=== PATIENT | female | born 1945 | race African-American/Black ===

== ENCOUNTER 2017-11-13 09:34 | Inpatient (IN) | payer OTHER, BC ==
--- NOTE | 2017-11-13 09:38 | PDOC ---
Attending Attestation - HPI HPI: 11/13/17 10:05 The patient is a 72 year old female with a significant PMH of ESRD(dialysis MWF) , hypertension, hyperlipidemia, anemia, and diabetes who presents to the emergency department via EMS with a near syncope episode prior to arrival to ED. The patient reports that she was at her dialysis treatment earlier this morning . she states that she had finished 2 of her 3 hours of her treatment when she began to experience some lightheadedness and vision changes. She denies eating or taking her blood pressure medication today. The patient denies any other symptoms. She denies any chest pain or shortness of breath. She denies any headache, numbness, weakness or tingling sensation. She denies any fever, chills, cough, nausea, vomit, diarrhea, constipation or urinary symptoms. The patient denies any other complaints. PCP: Dr. Song - Physicial Exam PE: 11/13/17 10:05 GENERAL: Awake, alert, and fully oriented, in no acute distress HEAD: No signs of trauma EYES: PERRLA, EOMI, sclera anicteric, conjunctiva clear ENT: Auricles normal inspection, hearing grossly normal, nares patent, oropharynx clear without exudates. Moist mucosa NECK: Normal ROM, supple, no lymphadenopathy, JVD, or masses LUNGS: Breath sounds equal, clear to auscultation bilaterally. No wheezes, and no crackles HEART: (+)tachycardic. Regular rate, normal S1 and S2, no murmurs, rubs or gallops ABDOMEN: Soft, nontender, normoactive bowel sounds. No guarding, no rebound. No masses EXTREMITIES: (+)left upper extremity fistula with bruit. Normal range of motion , no edema in legs. No clubbing or cyanosis. No cords, erythema, or tenderness NEUROLOGICAL: Cranial nerves II through XII grossly intact. Normal speech, normal gait SKIN: Warm, Dry, normal turgor, no rashes or lesions noted. Documentation prepared by Lea Machuca, acting as biomedical engineering technician for Rosi Cooper DO, MD. <Lea Machuca - Last Filed: 11/13/17 10:05> - Resident Resident Name: Samuel Yeh - ED Attending Attestation I have performed the following: I have examined & evaluated the patient, The case was reviewed & discussed with the resident, I agree w/resident's findings & plan, Exceptions are as noted - Critical Care Time Total Critical Care Time: 35 Critical Care Statement: The care of this patient involved high complexity decision making to prevent further life threatening deterioration of the patient 's condition and/or to evaluate & treat vital organ system(s) failure or risk of failure. - Medical Decision Making 11/13/17 09:38 I, Dr. Rosi Cooper, DO, attest that this document has been prepared under my direction and personally reviewed by me in its entirety. I further attest, that it accurately reflects all work, treatment, procedures and medical decision -making performed by me. 11/13/17 10:00 a/p: 72yo female presents from HD for an episode of hypotension during HD -had 2.5 hrs of HD out of 3hrs -no recent infections. no f/c -no cp/sob -felt lightheaded -will send labs, ekg, cxr, head ct -BP currently 122/48 -did not take BP meds today -will send trop -will monitor and reassess 11/13/17 10:53 pt with wbc of 19 will add blood cultures, lactate, type and screen hgb 7.4 with hypotension and near syncope today will discuss with Best Gomez about transfusion will need admission pending cultures and further eval of leukocytosis 11/13/17 11:31 Dr. Davis at the bedside hgb last week was 10.4 will need rectal exam for acute blood loss 11/13/17 11:[address] Davis transfuse 1 unit prbc today - will reassess for HD tomorrow will admit pt to [facility] for symptomatic anemia, leukocytosis, near syncope 11/13/17 12:22 case discussed with [facility] residents, accepts pt to service for admission <Rosi Cooper - Last Filed: 11/13/17 12:22> Heart Score/ECG Review - ECG Intrepretation Comment:: 11/13/17 09:52 sinus tach at 99, nl axis, st depression v5-6, no acute t wave changes - abnl ekg <Rosi Cooper - Last Filed: 11/13/17 12:22>
--- NOTE | 2017-11-13 10:02 | PDOC ---
History of Present Illness - General History Source: Patient, EMS Exam Limitations: No Limitations - History of Present Illness Initial Comments: 11/13/17 09:46 The patient is a 72F with a PMH of HTN, HLD, DM, dialysis (MWF) who presents from dialysis for hypotension and near syncope. The patient states that she got 2.5 hours of 3 of her dialysis. She states that around that time, she began to feel lightheaded and had some changes in her vision although she could not describe that further. She denies any CP, SOB, diaphoresis, nausea, vomiting, numbness, tingling, or weakness during this episode. <Samuel Yeh - Last Filed: 11/13/17 12:33> <Rosi Cooper - Last Filed: 11/13/17 17:31> - General Stated Complaint: Blood Pressure Problem Time Seen by Provider: 11/13/17 09:38 Past History - Past Medical History Anemia: Yes Asthma: No Cancer: No Cardiac Disorders: No CVA: No CHF: No Dementia: No Diabetes: Yes GI Disorders: No Disorders: No HTN: Yes Hypercholesterolemia: Yes Kidney Stones: Yes (ESRD on Dialysis Thu.) Liver Disease: No Seizures: No Thyroid Disease: No - Surgical History Abdominal Surgery: No Appendectomy: No Cardiac Surgery: No Cholecystectomy: No Lung Surgery: No Neurologic Surgery: No Orthopedic Surgery: No - Suicide/Smoking/Psychosocial Hx Smoking Status: No Smoking History: Never smoked Have you smoked in the past 12 months: No Number of Cigarettes Smoked Daily: 0 Hx Alcohol Use: No Drug/Substance Use Hx: No Substance Use Type: None Hx Substance Use Treatment: No <Samuel Yeh - Last Filed: 11/13/17 12:33> <Rosi Cooper - Last Filed: 11/13/17 17:31> - Past Medical History Allergies/Adverse Reactions: Allergies Allergy/AdvReac Type Severity Reaction Status Date / Time No Known Drug Allergies Allergy Verified 11/13/17 09:55 Home Medications: Ambulatory Orders Amlodipine Besylate 10 mg PO DAILY 11/13/17 Nebivolol [Bystolic -] 7.5 mg PO DAILY 11/13/17 Sevelamer Carbonate [Renvela] 1,600 mg PO TID 11/13/17 hydrALAZINE HCL [Apresoline -] 25 mg PO BID 11/13/17 Review of Systems - Review of Systems Able to Perform ROS?: Yes Comments:: 11/13/17 10:02 GENERAL/CONSTITUTIONAL: No fever or chills. No weakness. HEAD, EYES, EARS, NOSE AND THROAT: Positive for change in vision. No ear pain or discharge. No sore throat. CARDIOVASCULAR: Positive for lightheadedness. No chest pain or palpitations. RESPIRATORY: No cough, wheezing, shortness of breath, or hemoptysis. GASTROINTESTINAL: No nausea, vomiting, diarrhea, constipation, or abdominal pain. GENITOURINARY: No dysuria, frequency, hematuria, or change in urination. MUSCULOSKELETAL: No joint or muscle swelling or pain. No neck or back pain. SKIN: No rash or lesions. NEUROLOGIC: No headache, numbness, tingling, weakness, loss of consciousness, or change in strength/sensation. ENDOCRINE: No increased thirst. No abnormal weight change. HEMATOLOGIC/LYMPHATIC: No anemia, easy bleeding, or history of blood clots. ALLERGIC/IMMUNOLOGIC: No hives or skin allergy. Is the patient limited [place] proficient: No <Samuel Yeh - Last Filed: 11/13/17 12:33> *Physical Exam - Physical Exam Comments: 11/13/17 10:03 GENERAL: Well developed, well nourished. Awake and alert. No acute distress. HEENT: Normocephalic, atraumatic. Hearing grossly normal. Moist mucous membranes. PERRLA, EOMI. No conjunctival pallor. Sclera are non-icteric. NECK: Supple. Full ROM. No JVD. CARDIOVASCULAR: Regular rate and rhythm. No murmurs, rubs, or gallops. PULMONARY: No evidence of respiratory distress. Lungs clear to auscultation bilaterally. No wheezing, rales or rhonchi. ABDOMINAL: Soft. Non-tender. Non-distended. No rebound or guarding. GENITOURINARY: No CVA tenderness bilaterally. MUSCULOSKELETAL: Dialysis access in L arm w/ palpable thrill. Normal range of motion at all joints. No bony deformities or tenderness. EXTREMITIES: No cyanosis. No clubbing. No edema. No calf tenderness or swelling. SKIN: Warm and dry. Normal capillary refill. No rashes. No jaundice. NEUROLOGICAL: Alert, awake, appropriate. Cranial nerves 2-12 intact. Normal speech. Gait is normal without ataxia. PSYCHIATRIC: Cooperative. Good eye contact. Appropriate mood and affect. <Samuel Yeh - Last Filed: 11/13/17 12:33> - Vital Signs Last Vital Signs Temp Pulse Resp BP Pulse Ox 98.5 F 89 18 109/44 97 11/13/17 16:51 11/13/17 16:51 11/13/17 16:51 11/13/17 16:51 11/13/17 16:51 <Rosi Cooper - Last Filed: 11/13/17 17:31> Heart Score/ECG Review #1 General ECG Interpretation: Sinus Rhythm, Normal Rate, Normal Intervals, No acute ischemic changes Compared to previous ECG there are: Changes noted 11/13/17 10:04 NSR vent rate 100 FL 116 QRS 80 QTc 467 STD noted in lateral leads without reciprocal changes; CHANGED FROM PRIOR Tremors noted throughout No T wave inversions noted <Samuel Yeh - Last Filed: 11/13/17 12:33> ED Treatment Course - LABORATORY CBC & Chemistry Diagram: 11/13/17 10:30 11/13/17 10:30 - RADIOLOGY Radiology Studies Ordered: Category Date Time Status HEAD CT WITHOUT CONTRAST [CT] Stat CT Scan 11/13/17 09:45 Ordered CHEST X-RAY PORTABLE* [RAD] Stat Radiology 11/13/17 09:42 Ordered <Samuel Yeh - Last Filed: 11/13/17 12:33> - LABORATORY CBC & Chemistry Diagram: 11/13/17 10:30 11/13/17 10:30 - ADDITIONAL ORDERS Additional order review: Laboratory Results 11/13/17 11/13/17 10:30 10:10 Sodium 139 Potassium 3.9 Chloride 102 Carbon Dioxide 23 Anion Gap 14 BUN 41 H Creatinine 3.6 H Creat Clearance w eGFR 12.46 POC Glucometer 165.46769 Random Glucose 146 H Calcium 8.1 L Total Bilirubin 0.4 AST 12 L ALT 10 L Alkaline Phosphatase 79 Creatine Kinase 34 Troponin I 0.03 Total Protein 5.8 L Albumin 2.8 L 11/13/17 11/13/17 10:30 10:10 RBC 2.31 L MCV 99.3 H MCHC 32.3 RDW 14.1 MPV 10.6 Neutrophils % 93.9 H Lymphocytes % 3.4 L D Monocytes % 2.2 L Eosinophils % 0.0 D Basophils % 0.5 D POC Glucometer 165.13624 - Medications Given in the ED: ED Medications Discontinued Medications Generic Name Dose Route Start Last Admin Trade Name Yosef PRN Reason Stop Dose Admin Pantoprazole Sodium 40 mg/ 100 mls @ 200 mls/hr 11/13/17 16:21 11/13/17 16:55 Sodium Chloride IVPB 11/13/17 16:50 200 mls/hr ONCE ONE Administration Ondansetron HCl 4 mg 11/13/17 16:21 11/13/17 16:55 Zofran Injection IVPUSH 11/13/17 16:22 4 mg ONCE ONE Administration <Rosi Cooper - Last Filed: 11/13/17 17:31> Medical Decision Making - Medical Decision Making 11/13/17 10:09 The patient is a 72F with a PMH of dialysis, HTN, HLD, DM who presents to the ER for near syncope. EKG showing STD in V4-V6 concerning for ischemia to the heart. Will need to r/o subdural with CT and then dose ASA. Pending labs/ imaging. FS 165. 11/13/17 11:04 I have d/w Dr. Davis, covering for pt's medical transcriber Dr. Allen who states that the pt had a hgb of 10.9 last week. Pt has symptomatic anemia. Will admit after labs and imaging. 11/13/17 12:33 Attending admitted pt. Pending FOBT. <Samuel Yeh - Last Filed: 11/13/17 12:33> *DC/Admit/Observation/Transfer <Samuel Yeh - Last Filed: 11/13/17 12:33> <Rosi Cooper - Last Filed: 11/13/17 17:31> Diagnosis at time of Disposition: ESRD on hemodialysis, Symptomatic anemia
[2017-11-13 10:43] LABS: BASO % 0.5 % (0-2.0); HEMOGLOBIN 7.4 GM/dL (10.7-15.3); LYMPH % 3.4 % (8-40); MCH 32.1 pg (25.7-33.7); MCHC 32.3 g/dl (32.0-36.0); MEAN CELL VOLUME 99.3 fl (80-96); MEAN PLT VOLUME 10.6 fl (7.5-11.1); MONO % 2.2 % (3.8-10.2); NEUT % 93.9 % (42.8-82.8); PLATELET COUNT 146 K/MM3 (134-434); RBC 2.31 M/mm3 (3.60-5.2); RDW 14.1 % (11.6-15.6); WHITE BLOOD COUNT 19.1 K/mm3 (4.0-10.0)
[2017-11-13 11:50] LABS: ANISOCYTOSIS 1+; MACROCYTOSIS 1+
[2017-11-13 11:53] LABS: ALBUMIN 2.8 g/dl (3.4-5.0); ANION GAP 14 MMOL/L (8-16); BILIRUBIN,TOTAL 0.4 mg/dL (0.2-1.0); BLOOD UREA NITROGEN 41 mg/dL (7-18); CALCIUM 8.1 mg/dL (8.5-10.1); CHLORIDE 102 mmol/L (98-107); CO2 23 mmol/L (21-32); CREATININE 3.6 mg/dL (0.55-1.02); GLUCOSE,RANDOM 146 mg/dL (74-106); POTASSIUM 3.9 mmol/L (3.5-5.1); SGOT/AST 12 U/L (15-37); SGPT/ALT 10 U/L (12-78); SODIUM 139 mmol/L (136-145); TOT PROT 5.8 g/dl (6.4-8.2)
[2017-11-13 11:56] LABS: ALK PHOS 79 U/L (45-117)
--- NOTE | 2017-11-13 11:56 | HP ---
CHIEF COMPLAINT: PCP: HISTORY OF PRESENT ILLNESS: ER course was notable for: (1) (2) (3) Recent Travel: PAST MEDICAL HISTORY: PAST SURGICAL HISTORY: Social History: Smoking: Alcohol: Drugs: Family History: Allergies No Known Drug Allergies Allergy (Verified 11/13/17 09:55) HOME MEDICATIONS: Home Medications Medication Instructions Recorded Amlodipine Besylate 10 mg PO DAILY 11/13/17 Nebivolol [Bystolic -] 7.5 mg PO DAILY 11/13/17 Sevelamer Carbonate [Renvela] 800 mg PO TID 11/13/17 hydrALAZINE HCL [Apresoline -] 25 mg PO BID 11/13/17 REVIEW OF SYSTEMS CONSTITUTIONAL: Absent: fever, chills, diaphoresis, generalized weakness, malaise, loss of appetite, weight change HEENT: Absent: rhinorrhea, nasal congestion, throat pain, throat swelling, difficulty swallowing, mouth swelling, ear pain, eye pain, visual changes CARDIOVASCULAR: Absent: chest pain, syncope, palpitations, irregular heart rate, lightheadedness , peripheral edema RESPIRATORY: Absent: cough, shortness of breath, dyspnea with exertion, orthopnea, wheezing, stridor, hemoptysis GASTROINTESTINAL: Absent: abdominal pain, abdominal distension, nausea, vomiting, diarrhea, constipation, melena, hematochezia GENITOURINARY: Absent: dysuria, frequency, urgency, hesitancy, hematuria, flank pain, genital pain MUSCULOSKELETAL: Absent: myalgia, arthralgia, joint swelling, back pain, neck pain SKIN: Absent: rash, itching, pallor HEMATOLOGIC/IMMUNOLOGIC: Absent: easy bleeding, easy bruising, lymphadenopathy, frequent infections ENDOCRINE: Absent: unexplained weight gain, unexplained weight loss, heat intolerance, cold intolerance NEUROLOGIC: Absent: headache, focal weakness or paresthesias, dizziness, unsteady gait, seizure, mental status changes, bladder or bowel incontinence PSYCHIATRIC: Absent: anxiety, depression, suicidal or homicidal ideation, hallucinations. PHYSICAL EXAMINATION Vital Signs - 24 hr 11/13/17 11/13/17 09:35 10:00 Temperature 98.5 F Pulse Rate 98 H Pulse Rate [ 88 Left Radial] Respiratory 20 14 Rate Blood Pressure 127/56 Blood Pressure 116/47 [Right Arm] O2 Sat by Pulse 99 99 Oximetry (%) GENERAL: Awake, alert, and fully oriented, in no acute distress. HEAD: Normal with no signs of trauma. EYES: Pupils equal, round and reactive to light, extraocular movements intact, sclera anicteric, conjunctiva clear. No lid lag. EARS, NOSE, THROAT: Ears normal, nares patent, oropharynx clear without exudates. Moist mucous membranes. NECK: Normal range of motion, supple without lymphadenopathy, JVD, or masses. LUNGS: Breath sounds equal, clear to auscultation bilaterally. No wheezes, and no crackles. No accessory muscle use. HEART: Regular rate and rhythm, normal S1 and S2 without murmur, rub or gallop. ABDOMEN: Soft, nontender, not distended, normoactive bowel sounds, no guarding, no rebound, no masses. No hepatomegaly or splenomegaly. MUSCULOSKELETAL: Normal range of motion at all joints. No bony deformities or tenderness. No CVA tenderness. UPPER EXTREMITIES: 2+ pulses, warm, well-perfused. No cyanosis. No clubbing. No peripheral edema. LOWER EXTREMITIES: 2+ pulses, warm, well-perfused. No calf tenderness. No peripheral edema. NEUROLOGICAL: Cranial nerves II-XII intact. Normal speech. Normal gait. PSYCHIATRIC: Cooperative. Good eye contact. Appropriate mood and affect. SKIN: Warm, dry, normal turgor, no rashes or lesions noted, normal capillary refill. Laboratory Results - last 24 hr 11/13/17 11/13/17 10:10 10:30 WBC 19.1 H RBC 2.31 L Hgb 7.4 L Hct 23.0 L D MCV 99.3 H MCH 32.1 MCHC 32.3 RDW 14.1 Plt Count 146 MPV 10.6 Absolute Neuts (auto) 17.9 H Neutrophils % 93.9 H Neutrophils % (Manual) 93.0 H Lymphocytes % 3.4 L D Lymphocytes % (Manual) 6.0 L Monocytes % 2.2 L Monocytes % (Manual) 1 L Eosinophils % 0.0 D Basophils % 0.5 D Nucleated RBC % 0 Anisocytosis 1+ Macrocytosis 1+ POC Glucometer 165.70650 CBC, [facility] 11/13/17 10:30 ASSESSMENT/PLAN: Hospitalist Screening - Colonoscopy Questionnaire Colonoscopy Questionnaire: Colonoscopy Questionnaire
--- NOTE | 2017-11-13 13:08 | HP ---
CHIEF COMPLAINT: Lightheadedness PCP: Dr. Song NEPHROLOGY: Dr. Irma Garcia HISTORY OF PRESENT ILLNESS: 72 y/o female, accompanied by her son and daughter, with a PMHx of ESRD ( Dialysis MWF), HTN, HLD, NIDDM and Anemia presents to the ED after experiencing some lightheadedness and blurry vision during dialysis. Patient has been on dialysis for the past 6 years and has never experienced something like this before. Today, after 2.5 hours of dialysis, patient started to feel some fogginess and blurry vision. At this time, she noticed her BP was low but does not recall the number; of note, she normally takes her home BP meds in the afternoon. Patient was seen by Dr. Davis last week and told her Hgb was 10.4. Denies any feelings of dizziness, tonic clonic movements, loss of bowel or bladder control, palpitations, fatigue or orthostatics. Denies any recent weight changes, decreased PO intake, medication changes, sick contacts, travel or diet changes. Denies Bloody stools, hematuria, hematemesis, hemoptysis, fevers, chills, chest pain, SOB, nausea, vomiting, diarrhea, constipation. Of note, patient is anuric. ER course was notable for: (1) Head CT, CXR, EKG (2) Trop 0.03, Lactic acid 2.1, BCx pending (3) 1 unit pRBCs Recent Travel: Denies PAST MEDICAL HISTORY: ESRD (Dialysis MWF) HTN HLD NIDDM Anemia PAST SURGICAL HISTORY: Denies Social History: Smoking: Denies Alcohol: Denies Drugs: Denies Family History: DM Colon Cancer in Mother at age 60 Allergies No Known Drug Allergies Allergy (Verified 11/13/17 09:55) HOME MEDICATIONS: Home Medications Medication Instructions Recorded Amlodipine Besylate 10 mg PO DAILY 11/13/17 Nebivolol [Bystolic -] 7.5 mg PO DAILY 11/13/17 Sevelamer Carbonate [Renvela] 800 mg PO TID 11/13/17 hydrALAZINE HCL [Apresoline -] 25 mg PO BID 11/13/17 REVIEW OF SYSTEMS CONSTITUTIONAL: Absent: fever, chills, diaphoresis, generalized weakness, malaise, loss of appetite, weight change HEENT: Present: visual changes Absent: rhinorrhea, nasal congestion, throat pain, throat swelling, difficulty swallowing, mouth swelling, ear pain, eye pain CARDIOVASCULAR: Present: lightheadedness Absent: chest pain, syncope, palpitations, irregular heart rate, peripheral edema RESPIRATORY: Absent: cough, shortness of breath, dyspnea with exertion, orthopnea, wheezing, stridor, hemoptysis GASTROINTESTINAL: Absent: abdominal pain, abdominal distension, nausea, vomiting, diarrhea, constipation, melena, hematochezia GENITOURINARY: Absent: dysuria, frequency, urgency, hesitancy, hematuria, flank pain, genital pain MUSCULOSKELETAL: Absent: myalgia, arthralgia, joint swelling, back pain, neck pain SKIN: Absent: rash, itching, pallor HEMATOLOGIC/IMMUNOLOGIC: Absent: easy bleeding, easy bruising, lymphadenopathy, frequent infections ENDOCRINE: Absent: unexplained weight gain, unexplained weight loss, heat intolerance, cold intolerance NEUROLOGIC: Absent: headache, focal weakness or paresthesias, dizziness, unsteady gait, seizure, mental status changes, bladder or bowel incontinence PSYCHIATRIC: Absent: anxiety, depression, suicidal or homicidal ideation, hallucinations. PHYSICAL EXAMINATION Vital Signs - 24 hr 11/13/17 11/13/17 09:35 10:00 Temperature 98.5 F Pulse Rate 98 H Pulse Rate [ 88 Left Radial] Respiratory 20 14 Rate Blood Pressure 127/56 Blood Pressure 116/47 [Right Arm] O2 Sat by Pulse 99 99 Oximetry (%) GENERAL: Awake, alert, and fully oriented, in no acute distress. EYES: PERRL, EOMI THROAT: Oropharynx clear without exudates. Moist mucous membranes. NECK: Supple, No JVD LUNGS: Breath sounds equal, clear to auscultation bilaterally. No wheezes. HEART: Regular rate and rhythm, normal S1 and S2 without murmur. ABDOMEN: Soft, nontender, not distended, normoactive bowel sounds, no guarding. MUSCULOSKELETAL: Normal range of motion at all joints. No CVA tenderness. EXTREMITIES: 2+ pulses, No calf tenderness. No peripheral edema. Muscle Strength 5/5 to Elbow flexion/extension, Knee flexion/extension, dorsiflextion, plantarflexion. NEUROLOGICAL: Cranial nerves II-XII intact. Normal speech. Normal gait. C5-T1 and L4-S1 gross sensation intact B/L. SKIN: Warm, dry, no rashes or lesions noted, normal capillary refill. Laboratory Results - last 24 hr 11/13/17 11/13/17 11/13/17 10:10 10:30 10:30 WBC 19.1 H RBC 2.31 L Hgb 7.4 L Hct 23.0 L D MCV 99.3 H MCH 32.1 MCHC 32.3 RDW 14.1 Plt Count 146 MPV 10.6 Absolute Neuts (auto) 17.9 H Neutrophils % 93.9 H Neutrophils % (Manual) 93.0 H Lymphocytes % 3.4 L D Lymphocytes % (Manual) 6.0 L Monocytes % 2.2 L Monocytes % (Manual) 1 L Eosinophils % 0.0 D Basophils % 0.5 D Nucleated RBC % 0 Anisocytosis 1+ Macrocytosis 1+ Sodium 139 Potassium 3.9 Chloride 102 Carbon Dioxide 23 Anion Gap 14 BUN 41 H Creatinine 3.6 H Creat Clearance w eGFR 12.46 POC Glucometer 165.27067 Random Glucose 146 H Lactic Acid Calcium 8.1 L Total Bilirubin 0.4 AST 12 L ALT 10 L Alkaline Phosphatase 79 Creatine Kinase 34 Troponin I 0.03 Total Protein 5.8 L Albumin 2.8 L Stool Occult Blood Blood Type Antibody Screen Crossmatch 11/13/17 11/13/17 11/13/17 11:21 11:28 12:47 WBC RBC Hgb Hct MCV MCH MCHC RDW Plt Count MPV Absolute Neuts (auto) Neutrophils % Neutrophils % (Manual) Lymphocytes % Lymphocytes % (Manual) Monocytes % Monocytes % (Manual) Eosinophils % Basophils % Nucleated RBC % Anisocytosis Macrocytosis Sodium Potassium Chloride Carbon Dioxide Anion Gap BUN Creatinine Creat Clearance w eGFR POC Glucometer Random Glucose Lactic Acid 2.1 H Calcium Total Bilirubin AST ALT Alkaline Phosphatase Creatine Kinase Troponin I Total Protein Albumin Stool Occult Blood Positive Blood Type A POSITIVE Antibody Screen Negative Crossmatch See Detail IMAGING: - CXR: No evidence of active pulmonary disease. - CT Head: Moderate atrophy. No gross evidence of a focal intracranial lesion or hemorrhage is seen. ASSESSMENT/PLAN: 72 y/o female with a PMHx of ESRD (Dialysis MWF), HTN, HLD, NIDDM and Anemia presents to the ED after experiencing some lightheadedness and blurry vision during dialysis was observed for symptomatic anemia 1. Symptomatic Anemia - First time experiencing fogginess, blurry vision and ?Hypotension during dialysis - Seen by Dr. Davis last week and told her Hgb was 10.4, Today 7.4 - Likely due to anemia, orthostatics pending - CT Head: No gross evidence of a focal intracranial lesion or hemorrhage is seen. - 1 Unit pRBCs transfused in ED (11/13) - Troponin < 0.03 - FOBT positive - Repeat Labs pending: CBC, PT/INR, Lactic Acid, Troponins 2. R/O ACS - Troponin < 0.03, repeat ordered - Creatine Kinase negative - EKG: NSR with nonspecific ST and T wave changes - ESRD patient will likely have elevated Troponin 3. Leukocytosis - Afebrile, Blood Cx pending - CXR: No evidence of active pulmonary disease. - Lactic Acid 2.1, repeat ordered - No Indication for ABx at this time 4. ESRD - Anuric - Has Dialysis MWF - Patient has not picked up her Renvela since June - Nephrology (Dr. Allen) Consulted 5. HTN - Hold home BP Meds (Hydralazine, Bystolic, norvasc) - Med's rec'ed 6. NIDDM - BGM, ISS ACHS 7. PPx - DVT: SCDs for now, Cannot use heparin as we are ruling out GI Bleed 8. FEN - PO Fluids - Lytes wnl, replete as needed - Diabetic/Renal Diet Dispo: Observation Visit type - Emergency Visit Emergency Visit: Yes ED Registration Date: 11/13/17 Care time: The patient presented to the Emergency Department on the above date and was hospitalized for further evaluation of their emergent condition. - New Patient This patient is new to me today: Yes Date on this admission: 11/13/17 - Critical Care Critical Care patient: No Hospitalist Screening - Colonoscopy Questionnaire Colonoscopy Questionnaire: Colonoscopy Questionnaire - Patient: 50 - 75 years old and never had a screening colonoscopy: Yes History of colon or rectal polyps, or CA: Unknown History of IBD, Crohn's disease or UC: Unknown History of abdominal radiation therapy as a child: Unknown - Relative: 1 with colon or rectal CA, or polyps at age 60 or younger: Yes Colon or rectal CA diagnosed at age 45 or younger: Unknown Multiple relatives with colon or rectal CA: Unknown - Outcome: Screening Result: Positive Screen
--- NOTE | 2017-11-13 15:26 | CONSULT ---
Consult - text type - Consultation Consultation Note: Renal Consult for ESRD on HD This is a 72 year old woman with Hx of ESRD on HD (MWF) secondary to diabetic nephropathy, Hypertension, DM2 who presented with hypotension and pre-syncope at dialysis and found to have acute Anemia. Pt Hgb was 10.9 last week with routine dialysis labs. Denies any CP, SOB, Abd pain, N/V. Having loose stools that are dark in color. No NSIAD/ASA use. Was able to complete most of her dialysis today. PMhx: as above Allergies: NKDA Family Hx: NC Social Hx: No T/A/D Ros: as per HPI, all other pertinent ros negative Home Medications Medication Instructions Recorded Amlodipine Besylate 10 mg PO DAILY 11/13/17 Nebivolol [Bystolic -] 7.5 mg PO DAILY 11/13/17 Sevelamer Carbonate [Renvela] 1,600 mg PO TID 11/13/17 hydrALAZINE HCL [Apresoline -] 25 mg PO BID 11/13/17 Vital Signs Temperature 98.5 F 11/13/17 09:35 Pulse Rate 88 11/13/17 10:00 Respiratory Rate 14 11/13/17 10:00 Blood Pressure 116/47 11/13/17 10:00 O2 Sat by Pulse Oximetry (%) 99 11/13/17 10:00 Intake & Output 11/10/17 11/11/17 11/12/17 11/13/17 23:59 23:59 23:59 23:59 Weight 59.874 kg NAD awake and alert MMM, No JVD RRR,+ systolic murmur CTA, no wheeze or rales soft NT/ND Trace LE edema, no clubbing or cyanosis left ARM AVF + thrill CBC, BMP 11/13/17 10:30 11/13/17 10:30 Current Medications Insulin Aspart (Novolog Vial Sliding Scale -) 1 vial SQ ACHS [facility]; Protocol 72 year old woman with Hx of ESRD on HD (MWF) secondary to diabetic nephropathy , Hypertension, DM2 who presented with hypotension and pre-syncope at dialysis and found to have acute Anemia. 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
[2017-11-13] MEDS ORDERED: ONDANSETRON 4 MG/2 ML VIAL IVPUSH ONE (16:21)
[2017-11-13] MEDS ORDERED: PANTOPRAZOLE SODIUM 40 MG in SODIUM CHLORIDE 100 ML IVPB ONE (16:21)
[2017-11-13] MEDS: INSULIN SLIDING SCALE (NOVOLOG) 1 VIAL SQ SCH ×2 (16:30→21:39)
[2017-11-13] MEDS ORDERED: PANTOPRAZOLE SODIUM 40 MG/100 ML BAG IVPB ONE (16:53)
[2017-11-13] MEDS ORDERED: ONDANSETRON 4 MG/2 ML VIAL ONE (16:53)
--- NOTE | 2017-11-13 18:26 | PN ---
Teaching Attending Note Name of Resident: Caren Goldsmith ATTENDING PHYSICIAN STATEMENT I saw and evaluated the patient. I reviewed the resident's note and discussed the case with the resident. I agree with the resident's findings and plan as documented. SUBJECTIVE:72yo F with PMH HTN, DM, ESRD (MWF) presented to the ER after episode of hypotension and near syncope during HD earlier today. states she was in normal state of health. was feeling lightheadedness nad blurred vision checked her BP and it was low but does not recall the reading. HD session was cut short and sent to the ER. did not take her BP meds yet today. denies CP, SOB , fever, chills, cough, LOC, blackout of vision, N/V/C/D, melena, BRBPR, pt is anuric mother and uncle had colon cancer. dx in the 60's. pt never had colonoscopy ( states no one ever told her she needed one) OBJECTIVE: Last Vital Signs Temp Pulse Resp BP Pulse Ox 98.4 F 80 20 123/60 97 11/13/17 17:48 11/13/17 17:48 11/13/17 18:06 11/13/17 17:48 11/13/17 18:06 general NAD CV S1 s2 RRR Lungs CTA B/L no wheezing/rales/rhonchi Abdomen soft NT/ND Extremities LUE fistula palpable thrill ASSESSMENT AND PLAN: 72yo F with PMH HTN, DM, ESRD (MWF) presented to the ER after episode of hypotension and near syncope during HD earlier today and found to be anemic with Hgb 7.4 1. symptomatic anemia- will admit for further monitoring. as per director of quality last Hgb was noted to 10.5. will transfuse 1 unit PRBC. check repeat labs. pt is unsure if she is interested in colonoscopy at this time 2. Leukocytosis- likely reactive. CXR clear. BCx sent. anuric (will not check UA at this time). will hold abx a tthis time 3. hypotension- now normotensive. will hold oral agents at this time. re-start as needed 4. lactic acidosis- minimally elevated. will repeat to ensure it has normalized. 5. DM- hold oral agents. iss and BGM 6. ESRD on HD- did not complete todays HD session. as per nephro if they will complete session tomorrow. cont renelva 7. DVT ppx- SCD 8. spoke with family present at bedside, all questions answered. verbalized understanding and agreement with plan
[2017-11-13 19:10] LABS: INR 1.23 (0.83-1.09); PROTHROMBIN TIME (PATIENT) 13.9 SEC (9.7-13.0)
[2017-11-13 19:36] LABS: ALBUMIN 2.4 g/dl (3.4-5.0); ALK PHOS 65 U/L (45-117); ANION GAP 12 MMOL/L (8-16); BILIRUBIN,TOTAL 0.3 mg/dL (0.2-1.0); BLOOD UREA NITROGEN 60 mg/dL (7-18); CALCIUM 7.9 mg/dL (8.5-10.1); CHLORIDE 103 mmol/L (98-107); CO2 25 mmol/L (21-32); CREATININE 4.7 mg/dL (0.55-1.02); GLUCOSE,RANDOM 188 mg/dL (74-106); MAGNESIUM 1.8 mg/dL (1.8-2.4); PHOSPHOROUS 3.6 mg/dL (2.5-4.9); POTASSIUM 5.3 mmol/L (3.5-5.1); SGOT/AST 9 U/L (15-37); SGPT/ALT 9 U/L (12-78); SODIUM 140 mmol/L (136-145); TOT PROT 5.1 g/dl (6.4-8.2)
[2017-11-13] MEDS ORDERED: INSULIN (NOVOLOG) ASPART 100 UNITS/ML 10ML VIAL ONE (21:35)
[2017-11-14] MEDS ORDERED: EPINEPHrine 1:10,000 (P-F SYR) 1 MG/10 ML DISP.SYRIN SQ ONE
[2017-11-14 02:19] LABS: BASO % 0.4 % (0-2.0); EOS % 0.1 % (0-4.5); LYMPH % 9.5 % (8-40); MCHC 33.3 g/dl (32.0-36.0); MONO % 6.6 % (3.8-10.2); NEUT % 83.4 % (42.8-82.8); PLATELET COUNT 129 K/MM3 (134-434); RBC 1.91 M/mm3 (3.60-5.2); RDW 15.3 % (11.6-15.6); WHITE BLOOD COUNT 15.4 K/mm3 (4.0-10.0)
[2017-11-14 02:21] LABS: HEMATOCRIT 18.3 % (32.4-45.2); HEMOGLOBIN 6.1 GM/dL (10.7-15.3)
[2017-11-14] MEDS: INSULIN SLIDING SCALE (NOVOLOG) 1 VIAL SQ SCH ×4 (06:24→18:23)
[2017-11-14 08:15] LABS: BASO % 0.2 % (0-2.0); EOS % 0.2 % (0-4.5); LYMPH % 10.3 % (8-40); MCH 31.7 pg (25.7-33.7); MCHC 33.2 g/dl (32.0-36.0); MEAN CELL VOLUME 95.4 fl (80-96); MEAN PLT VOLUME 10.1 fl (7.5-11.1); MONO % 5.7 % (3.8-10.2); NEUT % 83.6 % (42.8-82.8); PLATELET COUNT 126 K/MM3 (134-434); RBC 1.78 M/mm3 (3.60-5.2); RDW 15.3 % (11.6-15.6); WHITE BLOOD COUNT 15.5 K/mm3 (4.0-10.0)
[2017-11-14 08:31] LABS: HEMOGLOBIN 5.7 GM/dL (10.7-15.3)
[2017-11-14 08:48] LABS: CHLORIDE 102 mmol/L (98-107); POTASSIUM 5.5 mmol/L (3.5-5.1); SODIUM 137 mmol/L (136-145)
[2017-11-14 09:19] LABS: ALBUMIN 2.2 g/dl (3.4-5.0); ALK PHOS 55 U/L (45-117); ANION GAP 13 MMOL/L (8-16); BILIRUBIN,TOTAL 0.3 mg/dL (0.2-1.0); BLOOD UREA NITROGEN 84 mg/dL (7-18); CO2 22 mmol/L (21-32); CREATININE 5.6 mg/dL (0.55-1.02); GLUCOSE,RANDOM 150 mg/dL (74-106); PHOSPHOROUS 3.6 mg/dL (2.5-4.9); SGOT/AST 10 U/L (15-37); SGPT/ALT 8 U/L (12-78); TOT PROT 4.7 g/dl (6.4-8.2)
--- NOTE | 2017-11-14 11:57 | PN ---
Progress Note (short form) - Note Progress Note: states overall she is feeling better. now endorses she had some nausea for the past few days and vomited up her food last night, only food and no blood noted. also had a BM last night which was mixed wiht stool and denies straining. says she typically has 1 BM daily and never sees black tarry looking stool or blood in it. eddie Cp, SOB, fever, chills take 2 motrin (400mg total) on average once a week. no excessive use recently. Current Medications Generic Name Dose Route Start Last Admin Trade Name Freq PRN Reason Stop Dose Admin Insulin Aspart 1 vial 11/13/17 16:30 11/14/17 06:24 Novolog Vial Sliding Scale - SQ Not Given ACHS [facility] Protocol Last Vital Signs Temp Pulse Resp BP Pulse Ox 98.2 F 61 20 113/43 89 L 11/14/17 06:00 11/14/17 06:00 11/14/17 06:00 11/14/17 06:00 11/14/17 04:00 general NAD CV S1 s2 RRR Lungs CTA B/L no wheezing/rales/rhonchi Abdomen soft NT/ND Extremities LUE fistula palpable thrill CBCD WBC 15.5 K/mm3 (4.0-10.0) H 11/14/17 06:40 RBC 1.78 M/mm3 (3.60-5.2) L 11/14/17 06:40 Hgb 5.7 GM/dL (10.7-15.3) L* 11/14/17 06:40 Hct 17.0 % (32.4-45.2) L 11/14/17 06:40 MCV 95.4 fl (80-96) 11/14/17 06:40 MCHC 33.2 g/dl (32.0-36.0) 11/14/17 06:40 RDW 15.3 % (11.6-15.6) 11/14/17 06:40 Plt Count 126 K/MM3 (134-434) L 11/14/17 06:40 MPV 10.1 fl (7.5-11.1) 11/14/17 06:40 CMP Sodium 137 mmol/L (136-145) 11/14/17 06:40 Potassium 5.5 mmol/L (3.5-5.1) H 11/14/17 06:40 Chloride 102 mmol/L (98-107) 11/14/17 06:40 Carbon Dioxide 22 mmol/L (21-32) 11/14/17 06:40 Anion Gap 13 MMOL/L (8-16) 11/14/17 06:40 BUN 84 mg/dL (7-18) H 11/14/17 06:40 Creatinine 5.6 mg/dL (0.55-1.02) H 11/14/17 06:40 Creat Clearance w eGFR 7.49 (>60) 11/14/17 06:40 Calcium 8.0 mg/dL (8.5-10.1) L 11/14/17 06:40 Total Bilirubin 0.3 mg/dL (0.2-1.0) 11/14/17 06:40 AST 10 U/L (15-37) L 11/14/17 06:40 ALT 8 U/L (12-78) L 11/14/17 06:40 Alkaline Phosphatase 55 U/L (45-117) D 11/14/17 06:40 Total Protein 4.7 g/dl (6.4-8.2) L 11/14/17 06:40 Albumin 2.2 g/dl (3.4-5.0) L 11/14/17 06:40 ASSESSMENT AND PLAN: 72yo F with PMH HTN, DM, ESRD (MWF) presented to the ER after episode of hypotension and near syncope during HD earlier today and found to be anemic with Hgb 7.4 1. symptomatic anemia- concern for GI bleed. FOBT + with inappropriate response to transfusion. will order 2 units PRBC. NPO, IVF and PPI ggt. will evaluate for hemolysis although low suspicion given normal bilirubin. will consult GI as will benefit from endoscopy on this admission. 2. hyperkalemia- plan for HD today 3. Leukocytosis- likely reactive. trending down. afebrile. WOrkup for infection currently negative. will hold abx. 4. hypotension- now normotensive. will hold oral agents at this time. re-start as needed 5. lactic acidosis- minimally elevated and normalized 6. DM- hold oral agents. iss and BGM 7. ESRD on HD- did not complete todays HD session. planned for PRBC to be given during HD. cont renelva 8. DVT ppx- SCD 9. spoke with family present at bedside, all questions answered. verbalized understanding and agreement with plan Visit type - Emergency Visit Emergency Visit: Yes ED Registration Date: 11/13/17 Care time: The patient presented to the Emergency Department on the above date and was hospitalized for further evaluation of their emergent condition. - New Patient This patient is new to me today: No - Critical Care Critical Care patient: No - Discharge Referral Referred to [facility] No
--- NOTE | 2017-11-14 12:25 | PN ---
Progress Note (short form) - Note Progress Note: covering dr borrero problems ESRD on HD diabetic nephropathy, Hypertension, DM2 s/p hypotension and pre-syncope at dialysis and found to have acute Anemia. Active Medications Insulin Aspart (Novolog Vial Sliding Scale -) 1 vial SQ ACHS [facility]; Protocol Last Admin: 11/14/17 06:24 Dose: Not Given Last Vital Signs Temp Pulse Resp BP Pulse Ox 98.2 F 61 20 113/43 89 L 11/14/17 06:00 11/14/17 06:00 11/14/17 06:00 11/14/17 06:00 11/14/17 04:00 Lungs clear Heart reg Abd Ext mild edema CBC, BMP 11/14/17 06:40 11/14/17 06:40 IMP- Hypotension Pre-syncope Acute Anemia- s/p prbc Leukocytosis ESRD on HD Hx of Hypertension DM Plan- HD today transfuse during HD
[2017-11-14 13:07] LABS: LDH 145 U/L (84-246)
[2017-11-14] MEDS ORDERED: SODIUM CHLORIDE 250 ML IV PRN (13:22)
[2017-11-14] MEDS ORDERED: PANTOPRAZOLE SODIUM 80 MG in SODIUM CHLORIDE 100 ML IVPB SCH (13:30)
--- NOTE | 2017-11-14 13:44 | CON.GI ---
Consult Consult Specialty:: GI Referred by:: Dr. Hines. Hospitalist service Reason for Consultation:: Anemia - History of Present Illness Chief Complaint: Anemia History of Present Illness: 72F with h/o ESRD on HD sent to ER from dialysis for evaluation of hypotension. On admission at 10:30 AM yesterday Hgb was 7.4. She received 1 U PRBC last night. Hgb 2AM this morning was 6.1. No interventions were taken at that time. Hgb 6:40 AM this morning was 5.7. Asked to evaluate further. She describes having a dark BM prior to admission and having Dark BMs while being admitted, the last being this morning. She was given food while in the ER holding area yesterday and she vomited. She was given breakfast this morning and vomited. There was no hematemesis. She describes some abdominal cramping since dmission but otherwise denies abdominal pain. She has never had an upper endoscopy or colonoscopy. She denies NSAID use including ASA therapy but Dr. Hines tells me that she uses motrin once per week. Her mother was diagnosed and from colon cancer in her 60's. She is scheduled to receive 2 U PRBC during HD today. - History Source History Provided By: Patient, Medical Record - Past Medical History Cardio/Vascular: Yes: HTN, Hyperlipdemia Renal/: Yes: Renal Failure (ESRD on HD M/W/F), Hemodialysis Endocrine: Yes: Diabetes Mellitus - Past Surgical History Past Surgical History: Yes: AV Fistula/Graft (left arm), Cataract Removal ( bilateral), Tubal Ligation - Alcohol/Substance Use Hx Alcohol Use: No History of Substance Use: reports: None - Smoking History Smoking history: Never smoked Have you smoked in the past 12 months: No Aproximately how many cigarettes per day: 0 - Social History Usual Living Arrangement: With Spouse ADL: Independent 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 Place of : [place] History of Recent Travel: No Home Medications - Allergies Allergies/Adverse Reactions: Allergies Allergy/AdvReac Type Severity Reaction Status Date / Time No Known Drug Allergies Allergy Verified 11/13/17 09:55 - Home Medications Home Medications: Ambulatory Orders Amlodipine Besylate 10 mg PO DAILY 11/13/17 Nebivolol [Bystolic -] 7.5 mg PO DAILY 11/13/17 Sevelamer Carbonate [Renvela] 1,600 mg PO TID 11/13/17 hydrALAZINE HCL [Apresoline -] 25 mg PO BID 11/13/17 Family Disease History - Family Disease History Family Disease History: Other: Father ( age 60 of [place]), Mother (Mother: age 67 of colon cancer), Brother (2, healthy), Sister (1, healthy), Son (2, healthy), Daughter (1, healthy) Review of Systems - Review of Systems Constitutional: denies: Fever, Unintentional Wgt. Loss Cardiovascular: denies: Chest Pain Respiratory: denies: Cough, SOB Gastrointestinal: reports: Melena, Nausea, Vomiting. denies: Abdominal Pain, Rectal Bleeding, Vomiting Blood Physical Exam-GI Vital Signs: Vital Signs Temperature 98.2 F 11/14/17 06:00 Pulse Rate 61 11/14/17 06:00 Respiratory Rate 20 11/14/17 06:00 Blood Pressure 113/43 11/14/17 06:00 O2 Sat by Pulse Oximetry (%) 89 L 11/14/17 04:00 Constitutional: Yes: Calm Eyes: No: Sclera Icterus Cardiovascular: Yes: Regular Rate and Rhythm Respiratory: Yes: CTA Bilaterally Gastrointestinal Inspection: Yes: Other (dry skin on abdominal wall). No: Scars ...Auscultate: Yes: Normoactive Bowel Sounds ...Palpate: Yes: Tenderness. No: Hepatomegaly, Splenomegaly ...Percussion: No: Tympanitic ...Rectal Exam: Yes: Other (No external lesions, no masses, + melena) Extremities: Yes: Other (Left arm AV fistula with palpable thrill) Edema: No (No LE edema) Neurological: Yes: Alert, Oriented Labs: CBC, BMP 11/14/17 06:40 11/14/17 06:40 INR, PTT INR 1.23 (0.83-1.09) H 11/13/17 18:00 Problem List - Problems (1) Melena Assessment/Plan: Discussed physical exam finding with Ms. Olson. Explained that to asses for source of GI blood loss, Upper endoscopy will first be performed to exclude bleeding source such as bleeding blood vessel, gastritis, PUD. If unrevealing in terms of an acute source of blood loss, colonoscopy will then be performed. She needs a colonoscopy anyways given her family history of colon cancer. We discussed potential risks of the procedure like but not limited to bleeding, perfoation requiring surgery to repair, infection, sedation medication effects all of which could be potentially life threatening. She has dgreed to the procedures and consent obtained. Nurse was in room during my discussion of the procedures For now: NPO except meds with small sips water PPI bolus followed by drip Patient to receive 2 more units PRBC during HD this afternoon If worsening hemodynamics or active GI hemorrhage, transfer to ICU Plan for EGD this weekend once optimized Code(s): K92.1 - MELENA
[2017-11-14 16:31] LABS: HEMATOCRIT 15.8 % (32.4-45.2); MCH 31.4 pg (25.7-33.7); MCHC 33.1 g/dl (32.0-36.0); MEAN CELL VOLUME 94.8 fl (80-96); MEAN PLT VOLUME 10.1 fl (7.5-11.1); PLATELET COUNT 153 K/MM3 (134-434); RBC 1.66 M/mm3 (3.60-5.2); RDW 15.4 % (11.6-15.6); WHITE BLOOD COUNT 17.9 K/mm3 (4.0-10.0)
[2017-11-14 16:44] LABS: HEMOGLOBIN 5.2 GM/dL (10.7-15.3)
--- NOTE | 2017-11-14 19:23 | EKG ---
Test Reason : Blood Pressure : / mmHG Vent. Rate : 099 BPM Atrial Rate : 099 BPM P-R Int : 116 ms QRS Dur : 080 ms QT Int : 364 ms P-R-T Axes : 051 022 030 degrees QTc Int : 467 ms POOR DATA QUALITY, INTERPRETATION MAY BE ADVERSELY AFFECTED NORMAL SINUS RHYTHM CANNOT RULE OUT ANTERIOR INFARCT , AGE UNDETERMINED ABNORMAL ECG WHEN COMPARED WITH ECG OF 29-JAN-2015 07:27, VENT. RATE HAS INCREASED BY 61 BPM QT HAS LENGTHENED Confirmed by MIC JONES MD ([id number]) on 11/14/2017 7:22:40 PM Referred By: Confirmed By:MIC JONES MD
[2017-11-14 20:13] LABS: HEMOGLOBIN 8.6 GM/dL (10.7-15.3); MCH 31.3 pg (25.7-33.7); MCHC 34.5 g/dl (32.0-36.0); MEAN CELL VOLUME 90.8 fl (80-96); MEAN PLT VOLUME 9.6 fl (7.5-11.1); PLATELET COUNT 126 K/MM3 (134-434); RBC 2.75 M/mm3 (3.60-5.2); RDW 15.7 % (11.6-15.6)
[2017-11-14] MEDS ORDERED: EPINEPHrine/PF 1 MG/1 ML (1:1,000) AMPULE ONE (20:58)
[2017-11-14] MEDS ORDERED: EPINEPHrine 1:10,000 (P-F SYR) 1 MG/10 ML DISP.SYRIN ONE (21:01)
--- NOTE | 2017-11-14 21:18 | CONSULT ---
Consult Consult Specialty:: PULM/CCM Referred by:: Dr. Lis Hines Reason for Consultation:: GIB - History of Present Illness Chief Complaint: GIB History of Present Illness: Ms Olson is a 72 y/o woman w/ ESRD on HD sent to ER from dialysis on 11/13 for eval of hypotension. (On admit Hgb = 7.4). The pt received PRBCs X1 U O/N. Hgb this AM = 6.1 --> 5.7. The pt describes having a dark BM prior to admit and having Dark BMs throughout this admit. Pt also endorse N/V but no hematemesis. The pt describes some abd cramping since admit but otherwise denies any abd pain. The pt has never had an upper endoscopy or colonoscopy. The pt denies any NSAID use including ASA therapy. Of note, the pt's mother was diagnosed and from colon cancer in her 60's. The pt received another PRBCs X2U today during HD, most recent Hgb = 8.6. The pt is admitted now to the ICU for EGD. - History Source History Provided By: Patient Limitations to Obtaining History: No Limitations - Past Medical History Cardio/Vascular: Yes: HTN, Hyperlipdemia Renal/: Yes: Renal Failure (ESRD on HD M/W/F), Hemodialysis Endocrine: Yes: Diabetes Mellitus - Past Surgical History Past Surgical History: Yes: AV Fistula/Graft (left arm), Cataract Removal ( bilateral), Tubal Ligation - Alcohol/Substance Use Hx Alcohol Use: No History of Substance Use: reports: None - Smoking History Smoking history: Never smoked Have you smoked in the past 12 months: No Aproximately how many cigarettes per day: 0 - Social History Usual Living Arrangement: With Spouse ADL: Independent 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 History of Recent Travel: No Home Medications - Allergies Allergies/Adverse Reactions: Allergies Allergy/AdvReac Type Severity Reaction Status Date / Time No Known Drug Allergies Allergy Verified 11/13/17 09:55 - Home Medications Home Medications: Ambulatory Orders Amlodipine Besylate 10 mg PO DAILY 11/13/17 Nebivolol [Bystolic -] 7.5 mg PO DAILY 11/13/17 Sevelamer Carbonate [Renvela] 1,600 mg PO TID 11/13/17 hydrALAZINE HCL [Apresoline -] 25 mg PO BID 11/13/17 Family Disease History - Family Disease History Family Disease History: Other: Father ( age 60 of [place]), Mother (Mother: age 67 of colon cancer), Brother (2, healthy), Sister (1, healthy), Son (2, healthy), Daughter (1, healthy) Review of Systems - Review of Systems Constitutional: reports: No Symptoms Eyes: reports: No Symptoms HENT: reports: No Symptoms Neck: reports: No Symptoms Cardiovascular: reports: No Symptoms Respiratory: reports: No Symptoms Gastrointestinal: reports: Nausea, Vomiting, Other (Dark Tarry stools) Genitourinary: reports: No Symptoms Breasts: reports: No Symptoms Reported Musculoskeletal: reports: No Symptoms Integumentary: reports: No Symptoms Neurological: reports: No Symptoms Endocrine: reports: No Symptoms Hematology/Lymphatic: reports: No Symptoms Psychiatric: reports: No Symptoms Pain Intensity: 0 Physical Exam Vital Signs: Vital Signs Temperature 98.4 F 11/14/17 17:00 Pulse Rate 91 H 11/14/17 19:10 Respiratory Rate 18 11/14/17 19:10 Blood Pressure 131/52 11/14/17 19:10 O2 Sat by Pulse Oximetry (%) 95 11/14/17 20:00 Intake & Output 11/11/17 11/12/17 11/13/17 11/14/17 23:59 23:59 23:59 23:59 Intake Total 570 Balance 570 Weight 60.781 kg Constitutional: Yes: Well Nourished, No Distress, Calm Eyes: Yes: WNL, Conjunctiva Clear, EOM Intact HENT: Yes: WNL, Atraumatic, Normocephalic Neck: Yes: WNL, Supple, Trachea Midline Cardiovascular: Yes: Regular Rate and Rhythm, Murmur Respiratory: Yes: WNL, Regular, CTA Bilaterally Gastrointestinal: Yes: Abdomen, Obese, Hypoactive Bowel Sounds, Melena ...Rectal Exam: Yes: Deferred Renal/: Yes: WNL, Anuria Breast(s): Yes: WNL Musculoskeletal: Yes: WNL Extremities: Yes: WNL Edema: No Peripheral Pulses WNL: Yes Integumentary: Yes: WNL Neurological: Yes: WNL, Alert, Oriented ...Motor Strength: WNL Psychiatric: Yes: WNL, Alert Labs: CBC, BMP 11/14/17 19:45 08/25/18 19:45 INR, PTT INR 1.23 (0.83-1.09) H 11/13/17 18:00 Laboratory Results - last 24 hr 11/13/17 11/13/17 11/14/17 11:21 21:33 02:00 WBC RBC Hgb Hct MCV MCH MCHC RDW Plt Count MPV Absolute Neuts (auto) Neutrophils % Lymphocytes % Monocytes % Eosinophils % Basophils % Nucleated RBC % Haptoglobin PTT (Actin FS) Sodium Potassium Chloride Carbon Dioxide Anion Gap BUN Creatinine Creat Clearance w eGFR POC Glucometer 164 Random Glucose Lactic Acid Calcium Phosphorus Total Bilirubin AST ALT Alkaline Phosphatase LD Total Troponin I 0.10 H Total Protein Albumin Blood Type A POSITIVE Antibody Screen Negative Crossmatch See Detail 11/14/17 11/14/17 11/14/17 02:00 02:00 05:21 WBC 15.4 H RBC 1.91 L Hgb 6.1 L* Hct 18.3 L D MCV 96.0 MCH 32.0 MCHC 33.3 RDW 15.3 Plt Count 129 L MPV 10.0 Absolute Neuts (auto) 12.9 H Neutrophils % 83.4 H Lymphocytes % 9.5 D Monocytes % 6.6 D Eosinophils % 0.1 D Basophils % 0.4 Nucleated RBC % 0 Haptoglobin PTT (Actin FS) Sodium Potassium Chloride Carbon Dioxide Anion Gap BUN Creatinine Creat Clearance w eGFR POC Glucometer 144 Random Glucose Lactic Acid 1.6 Calcium Phosphorus Total Bilirubin AST ALT Alkaline Phosphatase LD Total Troponin I Total Protein Albumin Blood Type Antibody Screen Crossmatch 11/14/17 11/14/17 11/14/17 06:40 06:40 06:40 WBC 15.5 H RBC 1.78 L Hgb 5.7 L* Hct 17.0 L MCV 95.4 MCH 31.7 MCHC 33.2 RDW 15.3 Plt Count 126 L MPV 10.1 Absolute Neuts (auto) 13.0 H Neutrophils % 83.6 H Lymphocytes % 10.3 Monocytes % 5.7 Eosinophils % 0.2 D Basophils % 0.2 Nucleated RBC % 0 Haptoglobin PTT (Actin FS) Sodium 137 Potassium 5.5 H Chloride 102 Carbon Dioxide 22 Anion Gap 13 BUN 84 H Creatinine 5.6 H Creat Clearance w eGFR 7.49 POC Glucometer Random Glucose 150 H Lactic Acid Calcium 8.0 L Phosphorus 3.6 Total Bilirubin 0.3 AST 10 L ALT 8 L Alkaline Phosphatase 55 D LD Total 145 Troponin I 0.07 H Cancelled Total Protein 4.7 L Albumin 2.2 L Blood Type Antibody Screen Crossmatch 11/14/17 11/14/17 11/14/17 06:40 06:40 10:32 WBC RBC Hgb Hct MCV MCH MCHC RDW Plt Count MPV Absolute Neuts (auto) Neutrophils % Lymphocytes % Monocytes % Eosinophils % Basophils % Nucleated RBC % Haptoglobin Cancelled PTT (Actin FS) Sodium Potassium Chloride Carbon Dioxide Anion Gap BUN Creatinine Creat Clearance w eGFR POC Glucometer 243 Random Glucose Lactic Acid Calcium Phosphorus Total Bilirubin AST ALT Alkaline Phosphatase LD Total Cancelled Troponin I Total Protein Albumin Blood Type Antibody Screen Crossmatch 11/14/17 11/14/17 11/14/17 14:50 15:55 17:12 WBC 17.9 H RBC 1.66 L Hgb 5.2 L* Hct 15.8 L MCV 94.8 MCH 31.4 MCHC 33.1 RDW 15.4 Plt Count 153 D MPV 10.1 Absolute Neuts (auto) Neutrophils % Lymphocytes % Monocytes % Eosinophils % Basophils % Nucleated RBC % Haptoglobin PTT (Actin FS) 23.1 L Sodium Potassium Chloride Carbon Dioxide Anion Gap BUN Creatinine Creat Clearance w eGFR POC Glucometer 146 Random Glucose Lactic Acid Calcium Phosphorus Total Bilirubin AST ALT Alkaline Phosphatase LD Total Troponin I Total Protein Albumin Blood Type Antibody Screen Crossmatch 11/14/17 11/14/17 19:45 19:45 WBC 15.0 H RBC 2.75 L Hgb 8.6 L Hct 25.0 L D MCV 90.8 MCH 31.3 MCHC 34.5 RDW 15.7 H Plt Count 126 L MPV 9.6 Absolute Neuts (auto) Neutrophils % Lymphocytes % Monocytes % Eosinophils % Basophils % Nucleated RBC % Haptoglobin PTT (Actin FS) Sodium 143 Potassium 3.4 L Chloride 101 Carbon Dioxide 31 Anion Gap 11 BUN 31 H D Creatinine 2.5 H Creat Clearance w eGFR 18.99 POC Glucometer Random Glucose 136 H Lactic Acid Calcium 7.9 L Phosphorus Total Bilirubin AST ALT Alkaline Phosphatase LD Total Troponin I Total Protein Albumin Blood Type Antibody Screen Crossmatch Imaging - Results Chest X-ray: Report Reviewed (CXR 11/13: No evidence of widening of the superior mediastinum. Mildly uncoiled thoracic aorta. The cardiac silhouette is not enlarged. No evidence of pneumonia, CHF, pleural effusion, or pneumothorax. No evidence of bulky hilar adenopathy. Surgical clips are observed in the left arm soft tissues. Impression. No evidence of active pulmonary disease.) Cat Scan: Report Reviewed ([facility] 11/13: There is moderate volume loss and ventricular dilatation. Moderate chronic microvascular ischemic changes are present No mass lesion, gross acute infarct or intracranial hemorrhage are identified. Visualized paranasal sinuses and mastoid air cells are well aerated. Calcification of the cavernous carotid arteries are noted. The calvarium is intact . Impression: Moderate atrophy. No gross evidence of a focal intracranial lesion or hemorrhage is seen.) Assessment/Plan ASSESS: This is a 72 y/o woman w/ ESRD (Dialysis MWF), HTN, HLD, NIDDM and Anemia admitted to the ICU now w/ GIB. PLAN: -Hold all anti-HTN meds -Hold all AC -NPO -Supp FiO2 for an SpO2 > 92% -Nebs -HOB > 30 -Active T & S -Maintain large bore IV X 2 -Trend CBC -Normal Transfusion thresholds -PPI gtt -STAT EGD -GI -HD a/p RENAL -FSs -Insulin prn DGL, ACNP_BC [facility] ICU PULM/CCM [id number] Critical Care Time/MDM Note Total Critical Care Time: 38 Critical Care Statement: The care of this patient involved high complexity decision making to prevent further life threatening deterioration of the patient 's condition and/or to evaluate & treat vital organ system(s) failure or risk of failure.
[2017-11-14 21:23] LABS: ANION GAP 11 MMOL/L (8-16); BLOOD UREA NITROGEN 31 mg/dL (7-18); CALCIUM 7.9 mg/dL (8.5-10.1); CHLORIDE 101 mmol/L (98-107); CO2 31 mmol/L (21-32); CREATININE 2.5 mg/dL (0.55-1.02); GLUCOSE,RANDOM 136 mg/dL (74-106); POTASSIUM 3.4 mmol/L (3.5-5.1); SODIUM 143 mmol/L (136-145)
[2017-11-14] MEDS ORDERED: ROCURONIUM BROMIDE 50 MG/5 ML VIAL ONE (22:12)
[2017-11-14] MEDS ORDERED: LIDOCAINE HCL/PF 1% SDV 5ML VIAL ONE (22:12)
[2017-11-14] MEDS ORDERED: SUCCINYLCHOLINE CHLORIDE 200 MG/10 ML VIAL ONE (22:12)
[2017-11-14] MEDS ORDERED: PROPOFOL 20 ML ONE ×2 (22:12)
[2017-11-14] MEDS ORDERED: MIDAZOLAM HCL 2 MG/2 ML SINGLE DOSE VIAL ONE (22:12)
--- NOTE | 2017-11-14 23:03 | PN ---
Progress Note (short form) - Note Progress Note: EGD complete. Report left in procedural section of physical chart and to be scanned into [employer] Problem List - Problems (1) Prema Code(s): K92.1 - PREMA
[2017-11-15] MEDS: INSULIN SLIDING SCALE (NOVOLOG) 1 VIAL SQ SCH ×5 (04:03→23:45)
[2017-11-15 06:10] LABS: INR 1.08 (0.83-1.09); PROTHROMBIN TIME (PATIENT) 12.2 SEC (9.7-13.0)
[2017-11-15 06:39] LABS: SERUM IRON SATURATION 87 % (15-55); TOTAL IRON BINDING CAPACITY 172 ug/dL (250-450); UIBC 22 ug/dL (118-369)
--- NOTE | 2017-11-15 07:39 | PN ---
Progress Note (short form) - Note Progress Note: PULM/CCM Pt Seen & Examined in the ICU. EGD O/N showed non-bleeding duodenal ulcer. 1G Hgb slide O/N from 8.6 --> 7.8 w/o stigmata of bleeding. Pt is CA+Ox3, NAD, no complaints. Active Medications Bisacodyl (Dulcolax -) 20 mg PO ONCE ONE Stop: 11/15/17 14:01 Sodium Chloride (Normal Saline -) 250 mls @ 3,000 mls/hr IV PRN PRN PRN Reason: Hypotension during Dialysis Stop: 11/15/17 13:22 Insulin Aspart (Novolog Vial Sliding Scale -) 1 vial SQ Q6HPO [facility]; Protocol Last Admin: 11/15/17 07:57 Dose: Not Given Pantoprazole Sodium (Protonix -) 40 mg PO DAILY [facility] V/S Period Temp Pulse Resp BP Sys/Garnica Pulse Ox Last 24 Hr 98.4 F-98.9 F 69-91 16-20 101-150/36-71 94-100 Intake & Output 11/12/17 11/13/17 11/14/17 11/15/17 23:59 23:59 23:59 23:59 Intake Total 570 100 Balance 570 100 Weight 60.781 kg CBC, BMP 11/15/17 05:30 11/15/17 05:30 RECENT STUDIES TO NOTE: Chest X-ray: Report Reviewed (CXR 11/13: No evidence of widening of the superior mediastinum. Mildly uncoiled thoracic aorta. The cardiac silhouette is not enlarged. No evidence of pneumonia, CHF, pleural effusion, or pneumothorax. No evidence of bulky hilar adenopathy. Surgical clips are observed in the left arm soft tissues. Impression. No evidence of active pulmonary disease.) Cat Scan: Report Reviewed (NCHCT 11/13: There is moderate volume loss and ventricular dilatation. Moderate chronic microvascular ischemic changes are present No mass lesion, gross acute infarct or intracranial hemorrhage are identified. Visualized paranasal sinuses and mastoid air cells are well aerated. Calcification of the cavernous carotid arteries are noted. The calvarium is intact . Impression: Moderate atrophy. No gross evidence of a focal intracranial lesion or hemorrhage is seen.) ASSESS: This is a 72 y/o woman w/ ESRD (Dialysis MWF), HTN, HLD, NIDDM and Anemia admitted to the ICU now w/ GIB. PLAN: -Hold all anti-HTN meds -Hold all AC -NPO -Supp FiO2 for an SpO2 > 92% -Nebs -HOB > 30 -Active T & S -Maintain large bore IV X 2 -Trend CBC -Normal Transfusion thresholds -PPI gtt -Bowel Prep this afternoon & Colonoscopy Thursday AM -GI -HD a/p RENAL -FSs -Insulin prn -Hold in ICU for now (in case pt opens up w/ bowel Prep) DGL, ACNP[facility] ICU PULM/CCM 4436 Critical Care Total Critical Care Time (in minutes): 38 Critical Care Statement: The care of this patient involved high complexity decision making to prevent further life threatening deterioration of the patient 's condition and/or to evaluate & treat vital organ system(s) failure or risk of failure.
[2017-11-15 07:51] LABS: BASO % 0.3 % (0-2.0); EOS % 0.1 % (0-4.5); HEMATOCRIT 23.1 % (32.4-45.2); HEMOGLOBIN 7.8 GM/dL (10.7-15.3); LYMPH % 13.4 % (8-40); MCH 30.6 pg (25.7-33.7); MCHC 33.7 g/dl (32.0-36.0); MEAN CELL VOLUME 90.7 fl (80-96); MEAN PLT VOLUME 9.9 fl (7.5-11.1); MONO % 6.1 % (3.8-10.2); NEUT % 80.1 % (42.8-82.8); PLATELET COUNT 126 K/MM3 (134-434); RBC 2.54 M/mm3 (3.60-5.2); WHITE BLOOD COUNT 14.6 K/mm3 (4.0-10.0)
[2017-11-15 08:19] LABS: BLOOD UREA NITROGEN 33 mg/dL (7-18); CHLORIDE 101 mmol/L (98-107); SODIUM 142 mmol/L (136-145)
[2017-11-15 08:20] LABS: ANION GAP 8 MMOL/L (8-16); CALCIUM 7.9 mg/dL (8.5-10.1); CO2 33 mmol/L (21-32); CREATININE 3.7 mg/dL (0.55-1.02); GLUCOSE,RANDOM 132 mg/dL (74-106)
--- NOTE | 2017-11-15 09:40 | PN ---
GI Progress Note Subjective: No overt bleeding States feeling well EGD last night revealed non-bleeding duodenal bulb ulcer - Objective Vital Signs: Vital Signs Temperature 98.4 F 11/15/17 00:00 Pulse Rate 72 11/15/17 08:00 Respiratory Rate 16 11/15/17 08:00 Blood Pressure 145/45 11/15/17 08:00 O2 Sat by Pulse Oximetry (%) 100 11/15/17 08:00 Constitutional: Calm Eyes: No: Sclera Icterus Cardiovascular: Yes: Regular Rate and Rhythm Respiratory: Yes: CTA Bilaterally Gastrointestinal Inspection: No: Distention ...Auscultate: Yes: Normoactive Bowel Sounds ...Palpate: No: Hepatomegaly, Splenomegaly, Tenderness Edema: No (No LE edema) Neurological: Yes: Alert Labs: CBC, BMP 11/15/17 05:30 11/15/17 05:30 INR, PTT INR 1.08 (0.83-1.09) 11/15/17 05:30 Hepatic Panel Total Bilirubin 0.3 mg/dL (0.2-1.0) 11/14/17 06:40 AST 10 U/L (15-37) L 11/14/17 06:40 ALT 8 U/L (12-78) L 11/14/17 06:40 Alkaline Phosphatase 55 U/L (45-117) D 11/14/17 06:40 Albumin 2.2 g/dl (3.4-5.0) L 11/14/17 06:40 Problem List - Problems (1) Melena Assessment/Plan: No active UGIB noted on EGD. ? if previous bleeding from ulcer Plan for colonoscopy 11/16 for further evaluation Code(s): K92.1 - MELENA
--- NOTE | 2017-11-15 09:43 | PN ---
Physical Exam: SUBJECTIVE: Patient seen and examined this morning in the ICU. No longer having any blurry vision or lightheadness. Feels Hungry. Denies fevers, chills, chest pain, SOB, nausea, vomiting, diarrhea, constipation. OBJECTIVE: Vital Signs Period Temp Pulse Resp BP Sys/Garnica Pulse Ox Last 24 Hr 98.4 F-98.9 F 69-91 16-20 101-150/36-71 94-100 GENERAL: Awake, alert, and fully oriented, in no acute distress. EYES: PERRL, EOMI THROAT: Oropharynx clear without exudates. Moist mucous membranes. NECK: Supple, No JVD LUNGS: Breath sounds equal, clear to auscultation bilaterally. No wheezes. HEART: Regular rate and rhythm, normal S1 and S2 without murmur. ABDOMEN: Soft, nontender, not distended, normoactive bowel sounds, no guarding. EXTREMITIES: 2+ pulses, No calf tenderness. No peripheral edema. Muscle Strength 5/5 to Elbow flexion/extension, Knee flexion/extension, dorsiflextion, plantarflexion. NEUROLOGICAL: Cranial nerves II-XII intact. Normal speech. C5-T1 and L4-S1 gross sensation intact b/l. Laboratory Results - last 24 hr 11/14/17 11/14/17 11/14/17 06:40 10:25 10:32 WBC RBC Hgb Hct MCV MCH MCHC RDW Plt Count MPV Absolute Neuts (auto) Neutrophils % Lymphocytes % Monocytes % Eosinophils % Basophils % Nucleated RBC % Haptoglobin Cancelled 108 PT with INR INR PTT (Actin FS) Sodium Potassium Chloride Carbon Dioxide Anion Gap BUN Creatinine Creat Clearance w eGFR POC Glucometer 243 Random Glucose Calcium Phosphorus Iron 150 H TIBC 172 L Iron Saturation 87 H Total Bilirubin AST ALT Alkaline Phosphatase LD Total Troponin I Total Protein Albumin Blood Type Antibody Screen Crossmatch 11/14/17 11/14/17 11/14/17 14:50 15:55 17:12 WBC 17.9 H RBC 1.66 L Hgb 5.2 L* Hct 15.8 L MCV 94.8 MCH 31.4 MCHC 33.1 RDW 15.4 Plt Count 153 D MPV 10.1 Absolute Neuts (auto) Neutrophils % Lymphocytes % Monocytes % Eosinophils % Basophils % Nucleated RBC % Haptoglobin PT with INR INR PTT (Actin FS) 23.1 L Sodium Potassium Chloride Carbon Dioxide Anion Gap BUN Creatinine Creat Clearance w eGFR POC Glucometer 146 Random Glucose Calcium Phosphorus Iron TIBC Iron Saturation Total Bilirubin AST ALT Alkaline Phosphatase LD Total Troponin I Total Protein Albumin Blood Type Antibody Screen Crossmatch 11/14/17 11/14/17 11/15/17 19:45 19:45 05:30 WBC 15.0 H RBC 2.75 L Hgb 8.6 L Hct 25.0 L D MCV 90.8 MCH 31.3 MCHC 34.5 RDW 15.7 H Plt Count 126 L MPV 9.6 Absolute Neuts (auto) Neutrophils % Lymphocytes % Monocytes % Eosinophils % Basophils % Nucleated RBC % Haptoglobin PT with INR 12.20 INR 1.08 PTT (Actin FS) Sodium 143 Potassium 3.4 L Chloride 101 Carbon Dioxide 31 Anion Gap 11 BUN 31 H D Creatinine 2.5 H Creat Clearance w eGFR 18.99 POC Glucometer Random Glucose 136 H Calcium 7.9 L Phosphorus Iron TIBC Iron Saturation Total Bilirubin AST ALT Alkaline Phosphatase LD Total Troponin I Total Protein Albumin Blood Type Antibody Screen Crossmatch 11/15/17 11/15/17 05:30 05:30 WBC 14.6 H RBC 2.54 L Hgb 7.8 L Hct 23.1 L MCV 90.7 MCH 30.6 MCHC 33.7 RDW 16.0 H Plt Count 126 L MPV 9.9 Absolute Neuts (auto) 11.7 H Neutrophils % 80.1 Lymphocytes % 13.4 D Monocytes % 6.1 Eosinophils % 0.1 Basophils % 0.3 Nucleated RBC % 0 Haptoglobin PT with INR INR PTT (Actin FS) Sodium 142 Potassium 4.0 Chloride 101 Carbon Dioxide 33 H Anion Gap 8 BUN 33 H Creatinine 3.7 H Creat Clearance w eGFR 12.08 POC Glucometer Random Glucose 132 H Calcium 7.9 L Phosphorus Iron TIBC Iron Saturation Total Bilirubin AST ALT Alkaline Phosphatase LD Total Troponin I Total Protein Albumin Blood Type Antibody Screen Crossmatch Active Medications Bisacodyl (Dulcolax -) 20 mg PO ONCE ONE Stop: 11/15/17 14:01 Sodium Chloride (Normal Saline -) 250 mls @ 3,000 mls/hr IV PRN PRN PRN Reason: Hypotension during Dialysis Stop: 11/15/17 13:22 Insulin Aspart (Novolog Vial Sliding Scale -) 1 vial SQ Q6HPO [facility]; Protocol Last Admin: 11/15/17 07:57 Dose: Not Given Pantoprazole Sodium (Protonix -) 40 mg PO DAILY [facility] IMAGING: - CXR: No evidence of active pulmonary disease. - CT Head: Moderate atrophy. No gross evidence of a focal intracranial lesion or hemorrhage is seen. - EKG: NORMAL SINUS RHYTHM, CANNOT RULE OUT ANTERIOR INFARCT , AGE UNDETERMINED , ABNORMAL ECG, WHEN COMPARED WITH ECG OF 29-JAN-2015 07:27, VENT. 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 Symptomatic Anemia - First time experiencing fogginess, blurry vision and ?Hypotension during dialysis - Seen by Dr. Davis last week and told her Hgb was 10.4, Today 7.4 - Likely due to anemia, orthostatics pending - CT Head: No gross evidence of a focal intracranial lesion or hemorrhage is seen. - S/P 3 units pRBCs transfused total (1 in ED [11/13], 2 pre-EGD [11/14]) - FOBT positive - GI (Dr. 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 R/O ACS - Troponin 0.03 --> 0.10 --> 0.07 - Creatine Kinase negative - EKG: NSR with nonspecific ST and T wave changes - ESRD patient will likely have elevated Troponin 3. Leukocytosis - Afebrile, Blood Cx pending - WBC Trending down, likely reactive - CXR: No evidence of active pulmonary disease. - Lactic Acid 2.1 --> 2.5 --> 1.6 - No Indication for ABx at this time 4. ESRD - Anuric - Has Dialysis MWF - Patient has not picked up her Renvela since June, Continue Renvela - Nephrology (Dr. Allen) Consulted 5. HTN - Hold home BP Meds (Hydralazine, Bystolic, norvasc) - Will consider restarting if patient becomes Hypertensive - Med's rec'ed 6. NIDDM - BGM, ISS ACHS 7. PPx - DVT: SCDs for now, Cannot use heparin as we are ruling out GI Bleed 8. FEN - PO Fluids - Hyperkalemia on HD, Resolved - Diabetic/Renal Diet, NPO after midnight for colonoscopy Dispo: Pending transfer to [facility] from MICU Visit type - Emergency Visit Emergency Visit: Yes ED Registration Date: 11/13/17 Care time: The patient presented to the Emergency Department on the above date and was hospitalized for further evaluation of their emergent condition. - New Patient This patient is new to me today: No - Critical Care Critical Care patient: Yes Total Critical Care Time (in minutes): 40 Critical Care Statement: The care of this patient involved high complexity decision making to prevent further life threatening deterioration of the patient 's condition and/or to evaluate & treat vital organ system(s) failure or risk of failure.
--- NOTE | 2017-11-15 10:21 | PN ---
Teaching Attending Note Name of Resident: Caren Goldsmith ATTENDING PHYSICIAN STATEMENT I saw and evaluated the patient. I reviewed the resident's note and discussed the case with the resident. I agree with the resident's findings and plan as documented. SUBJECTIVE:asymptomatic currently. episode of melena yesterday aas well as some dizzyness iwht hypotension during HD yesterday. Transferred to the MICU and had emergent EGD yesterday. tolerated well. no other resports of melena denies CP, SOB, fever, chills, N/V/c/D OBJECTIVE: Last Vital Signs Temp Pulse Resp BP Pulse Ox 98.4 F 72 16 145/45 100 11/15/17 00:00 11/15/17 08:00 11/15/17 08:00 11/15/17 08:00 11/15/17 08:00 General NAD CV S1 S2 RRR +murmur Lungs CTA B/L no wheezing/rales/rhonchi Abdomen soft NT/ND ASSESSMENT AND PLAN: 72yo F with PMH HTN, DM, ESRD (MWF) presented to the ER after episode of hypotension and near syncope during HD earlier today and found to be anemic with Hgb 7.4. case complicated by development of melena and not responding to blood transfusions was transferred to MICU and had emergent EGD. 1. symptomatic anemia- concern for GI bleed. s/p EGD on 11/14. showing 5mm duodenal ulcer with clean base and no signs of bleeding. +schitaki ring. s/p 2 units PRBC this hospital stay. cont to trend Hgb Q8H and transfuse as needed. plan for colonosocpy in the AM. PPI po. GI on board. 2. hyperkalemia-s/p HD. resolved 3. Leukocytosis- likely reactive. trending down. afebrile. WOrkup for infection currently negative. will hold abx. 4. hypotension- now normotensive. will hold oral agents at this time. re-start as needed 5. lactic acidosis- minimally elevated and normalized 6. DM- hold oral agents. iss and BGM 7. ESRD on HD- had HD yesterday. normal schedule. nephro on board 8. DVT ppx- SCD 9. MICU monitoring The care of this patient involved high complexity decision making to prevent further life threatening deterioration of the patient's condition and/or to evaluate & treat vital organ system(s) failure or risk of failure. 40 mins
[2017-11-15] MEDS: PANTOPRAZOLE 40 MG TABLET (FP) PO SCH (10:58)
[2017-11-15 12:39] VITALS: BMI 26.2
[2017-11-15 12:44] LABS: BASO % 0.4 % (0-2.0); EOS % 0.3 % (0-4.5); HEMATOCRIT 24.2 % (32.4-45.2); HEMOGLOBIN 8.2 GM/dL (10.7-15.3); MCHC 33.8 g/dl (32.0-36.0); MEAN CELL VOLUME 91.7 fl (80-96); MEAN PLT VOLUME 9.7 fl (7.5-11.1); MONO % 5.2 % (3.8-10.2); NEUT % 80.1 % (42.8-82.8); PLATELET COUNT 149 K/MM3 (134-434); RBC 2.64 M/mm3 (3.60-5.2); RDW 16.6 % (11.6-15.6); WHITE BLOOD COUNT 12.9 K/mm3 (4.0-10.0)
[2017-11-15] MEDS ORDERED: BISACODYL 5 MG TABLET.DR (FP) PO ONE ×2 (14:00→16:00)
[2017-11-15] MEDS ORDERED: PEG3350/SOD SULF,BICARB,CL/KCL 4,000 ML SOLN.RECON PO ONE (15:00)
--- NOTE | 2017-11-15 16:04 | PN ---
Progress Note (short form) - Note Progress Note: covering dr borrero transferred to icu problems GI bleed s/p EGD- duodenal ulcer not actively bleeding ESRD on HD diabetic nephropathy, Hypertension, DM2 s/p hypotension and pre-syncope at dialysis and found to have acute Anemia. alert in nad no sob or abd pain Last Vital Signs Temp Pulse Resp BP Pulse Ox 98 F 82 18 138/67 100 11/15/17 10:00 11/15/17 12:00 11/15/17 12:00 11/15/17 12:00 11/15/17 08:00 Lungs clear Heart reg Abd Ext mild edema CBC, BMP 11/15/17 12:20 11/15/17 05:30 IMP- GI bleed severe s/p prbc gi w/u in progress Hypotension Pre-syncope Acute Anemia- s/p prbc Leukocytosis ESRD on HD Hx of Hypertension DM Plan- regular hd tx tomorrow
[2017-11-15] MEDS ORDERED: SODIUM CHLORIDE 250 ML IV PRN (16:55)
--- NOTE | 2017-11-15 18:03 | PN ---
Progress Note, Physician Chief Complaint: Pt. resting comfortably in chair. No anesthesia complaints. - Current Medication List Current Medications: Active Medications Sodium Chloride (Normal Saline -) 250 mls @ 3,000 mls/hr IV PRN PRN PRN Reason: Hypotension during Dialysis Stop: 11/16/17 16:29 Insulin Aspart (Novolog Vial Sliding Scale -) 1 vial SQ Q6HPO [facility]; Protocol Last Admin: 11/15/17 16:45 Dose: Not Given Pantoprazole Sodium (Protonix -) 40 mg PO DAILY [facility] Last Admin: 11/15/17 10:58 Dose: 40 mg - Objective Vital Signs: Vital Signs Temperature 98.3 F 11/15/17 16:00 Pulse Rate 74 11/15/17 16:00 Respiratory Rate 18 11/15/17 16:00 Blood Pressure 184/55 11/15/17 16:00 O2 Sat by Pulse Oximetry (%) 100 11/15/17 08:00 Constitutional: Yes: Well Nourished, No Distress, Calm Neurological: Yes: WNL, Alert, Oriented Labs: CBC, BMP 11/15/17 12:20 11/15/17 05:30 INR, PTT INR 1.08 (0.83-1.09) 11/15/17 05:30 Assessment/Plan POD#1 s/p EGD under GA. Doing well. D/C from anesthesia care.
[2017-11-15] MEDS ORDERED: HEMOQUE TEST 1 EACH EACH ONE (20:28)
[2017-11-16 06:05] LABS: HEMATOCRIT 22.8 % (32.4-45.2); HEMOGLOBIN 7.6 GM/dL (10.7-15.3); MCH 31.2 pg (25.7-33.7); MCHC 33.6 g/dl (32.0-36.0); MEAN PLT VOLUME 8.8 fl (7.5-11.1); PLATELET COUNT 161 K/MM3 (134-434); RBC 2.45 M/mm3 (3.60-5.2); RDW 15.9 % (11.6-15.6); WHITE BLOOD COUNT 11.8 K/mm3 (4.0-10.0)
[2017-11-16] MEDS: INSULIN SLIDING SCALE (NOVOLOG) 1 VIAL SQ SCH ×3 (06:08→18:01)
[2017-11-16 06:32] LABS: CHLORIDE 101 mmol/L (98-107); POTASSIUM 4.1 mmol/L (3.5-5.1); SODIUM 142 mmol/L (136-145)
[2017-11-16 06:41] LABS: ALBUMIN 2.6 g/dl (3.4-5.0); ALK PHOS 66 U/L (45-117); ANION GAP 11 MMOL/L (8-16); BILIRUBIN,TOTAL 0.7 mg/dL (0.2-1.0); BLOOD UREA NITROGEN 38 mg/dL (7-18); CALCIUM 8.4 mg/dL (8.5-10.1); CO2 30 mmol/L (21-32); CREATININE 5.8 mg/dL (0.55-1.02); GLUCOSE,RANDOM 95 mg/dL (74-106); MAGNESIUM 1.7 mg/dL (1.8-2.4); PHOSPHOROUS 3.9 mg/dL (2.5-4.9); SGOT/AST 16 U/L (15-37); SGPT/ALT 10 U/L (12-78); TOT PROT 5.2 g/dl (6.4-8.2)
[2017-11-16] MEDS ORDERED: MAGNESIUM 1GM/D5W 100ML - 100 ML IVPB IVPB ONE (08:00)
--- NOTE | 2017-11-16 08:44 | PN ---
Teaching Attending Note Name of Resident: Sherif Cheatham ATTENDING PHYSICIAN STATEMENT I saw and evaluated the patient. I reviewed the resident's note and discussed the case with the resident. I agree with the resident's findings and plan as documented. SUBJECTIVE:asymptomatic. staets she had frequent BM all night did not see any blood or melena. denies cp, SOB, fever, chills, N/V/C/D OBJECTIVE: Last Vital Signs Temp Pulse Resp BP Pulse Ox 98.5 F 87 18 163/53 100 11/16/17 08:07 11/16/17 08:07 11/16/17 08:07 11/16/17 08:07 11/16/17 08:07 General NAD CV S1 S2 RRR +murmur Lungs CTA B/L no wheezing/rales/rhonchi Abdomen soft NT/ND ASSESSMENT AND PLAN: 72yo F with PMH HTN, DM, ESRD (MWF) presented to the ER after episode of hypotension and near syncope during HD earlier today and found to be anemic with Hgb 7.4. case complicated by development of melena and not responding to blood transfusions was transferred to MICU and had emergent EGD. 1. symptomatic anemia- concern for GI bleed. s/p EGD on 11/14. showing 5mm duodenal ulcer with clean base and no signs of bleeding. +schitaki ring. s/p 3 units PRBC this hospital stay. NPO for colonoscopy today. will cont to trend Hgb Q8H and transfuse as needed. PPI po. GI on board. 2. hyperkalemia-s/p HD. resolved 3. Leukocytosis- likely reactive. trending down. afebrile. WOrkup for infection currently negative. will hold abx. 4. hypotension- now hypertensive. will slowly re-start reduced dose of norvasc. titrate up as needed 5. lactic acidosis- minimally elevated and normalized 6. DM- hold oral agents. iss and BGM 7. ESRD on HD- had HD yesterday. normal schedule. nephro on board 8. DVT ppx- SCD 9. MICU monitoring The care of this patient involved high complexity decision making to prevent further life threatening deterioration of the patient's condition and/or to evaluate & treat vital organ system(s) failure or risk of failure. 35 mins
[2017-11-16] MEDS ORDERED: amLODIPine BESYLATE 5 MG TABLET (FP) PO ONE (10:30)
[2017-11-16] MEDS: PANTOPRAZOLE 40 MG TABLET (FP) PO SCH (10:42)
--- NOTE | 2017-11-16 10:48 | PN ---
Progress Note (short form) - Note Progress Note: Colonoscopy complete. Report left in procedural section of physical chart and to be scanned into [employer] Problem List - Problems (1) Prema Code(s): K92.1 - PREMA
[2017-11-16] MEDS ORDERED: MAGNESIUM OXIDE 400 MG TABLET (FP) PO ONE (11:11)
--- NOTE | 2017-11-16 12:16 | PN ---
Teaching Attending Note Name of Resident: Francia Leon ATTENDING PHYSICIAN STATEMENT I saw and evaluated the patient. I reviewed the resident's note and discussed the case with the resident. I agree with the resident's findings and plan as documented. SUBJECTIVE: Pt seen and examined in the ICU. s/p colonoscopy showing polyps s/p polypectomies. No further bleeding noted. OBJECTIVE: Vital Signs Period Temp Pulse Resp BP Sys/Garnica Pulse Ox Last 24 Hr 98 F-98.7 F 72-98 14-18 129-184/48-98 100-100 Intake & Output 11/13/17 11/14/17 11/15/17 11/16/17 23:59 23:59 23:59 23:59 Intake Total 823 941 7429 300 Output Total 1 Balance 643 120 9540 299 Weight 60.781 kg 60.781 kg 60.872 kg Gen: NAD at rest Heart: RRR Lung: decreased breath sounds at the bases Abd: soft, nontender Ext: no edema CBC, BMP 11/16/17 05:30 11/16/17 05:30 Active Medications Sodium Chloride (Normal Saline -) 250 mls @ 3,000 mls/hr IV PRN PRN PRN Reason: Hypotension during Dialysis Stop: 11/16/17 16:29 Insulin Aspart (Novolog Vial Sliding Scale -) 1 vial SQ Q6HPO [facility]; Protocol Last Admin: 11/16/17 11:27 Dose: Not Given Pantoprazole Sodium (Protonix -) 40 mg PO DAILY [facility] Last Admin: 11/16/17 10:42 Dose: 40 mg ASSESSMENT AND PLAN: GI Bleed Duodenal Ulcer Acute Blood Loss Anemia Lactic Acidosis resolved ESRD on HD DM HTN - monitor H/H - transfuse as needed - HD per renal - PO per GI - protonix - DVT prophylaxis - can monitor on floor
--- NOTE | 2017-11-16 13:00 | PN ---
Progress Note (short form) - Note Progress Note: Renal Follow up for ESRD on HD Pt seen and examined in the ICU awake and alert no acute complaints s/p EGD this am no CP, sob, abd pain, fever, chills s/p dialysis on Thursday Vital Signs Temperature 98.5 F 11/16/17 10:25 Pulse Rate 85 11/16/17 12:00 Respiratory Rate 20 11/16/17 12:00 Blood Pressure 136/48 11/16/17 10:25 O2 Sat by Pulse Oximetry (%) 100 11/16/17 08:07 Intake & Output 11/13/17 11/14/17 11/15/17 11/16/17 23:59 23:59 23:59 23:59 Intake Total 703 247 4604 300 Output Total 1 Balance 550 654 6795 299 Weight 60.781 kg 60.781 kg 60.872 kg NAD awake and alet trace LE edema CBC, BMP 11/16/17 05:30 11/16/17 05:30 Current Medications Sodium Chloride (Normal Saline -) 250 mls @ 3,000 mls/hr IV PRN PRN PRN Reason: Hypotension during Dialysis Stop: 11/16/17 16:29 Insulin Aspart (Novolog Vial Sliding Scale -) 1 vial SQ Q6HPO [facility]; Protocol Last Admin: 11/16/17 11:27 Dose: Not Given Pantoprazole Sodium (Protonix -) 40 mg PO DAILY [facility] Last Admin: 11/16/17 10:42 Dose: 40 mg 72 year old woman with Hx of ESRD on HD (MWF) secondary to diabetic nephropathy , Hypertension, DM2 who presented with hypotension and pre-syncope at dialysis and found to have acute Anemia. #Hypotension due to acute anemia #Pre-syncope #Acute Anemia secondary to GI Bleed #Leukocytosis #ESRD on HD #Hx of Hypertension #DM s/p Colonoscopy that showed diverticulosis Hgb improved s/p PRBC transfusion, hgb < 8 today, will transfuse additional blood with HD will continue high dose KENNA HD today with UF as tolerated continue to hold antihypertensives Thank you Gavino Davis DO
--- NOTE | 2017-11-16 15:01 | PN ---
Physical Exam: SUBJECTIVE: Patient is a 72 y/o female with a history of ESRD(M,W,F), HTN, HLD, NIDDM, anemia who is here for GI bleed. Patient had diarrhea overnight from the golytle. Patient to have colonoscopy today. OBJECTIVE: Vital Signs Temperature 98.5 F 11/16/17 10:25 Pulse Rate 85 11/16/17 12:00 Respiratory Rate 20 11/16/17 12:00 Blood Pressure 136/48 11/16/17 10:25 O2 Sat by Pulse Oximetry (%) 100 11/16/17 08:07 GENERAL: The patient is awake, alert, and fully oriented, in no acute distress. EYES: PERRL, extraocular movements intact ENT: moist mucous membranes. NECK: Trachea midline, full range of motion, supple. LUNGS: Breath sounds equal, clear to auscultation bilaterally HEART: Regular rate and rhythm ABDOMEN: Soft, nontender, nondistended, normoactive bowel sounds EXTREMITIES: 2+ pulses, warm, well-perfused, no edema. PSYCH: Normal mood, normal affect. SKIN: Warm, dry, normal turgor, no rashes or lesions noted CBCD WBC 11.8 K/mm3 (4.0-10.0) H 11/16/17 05:30 RBC 2.45 M/mm3 (3.60-5.2) L 11/16/17 05:30 Hgb 7.6 GM/dL (10.7-15.3) L 11/16/17 05:30 Hct 22.8 % (32.4-45.2) L 11/16/17 05:30 MCV 93.0 fl (80-96) 11/16/17 05:30 MCHC 33.6 g/dl (32.0-36.0) 11/16/17 05:30 RDW 15.9 % (11.6-15.6) H 11/16/17 05:30 Plt Count 161 K/MM3 (134-434) 11/16/17 05:30 MPV 8.8 fl (7.5-11.1) 11/16/17 05:30 CMP Sodium 142 mmol/L (136-145) 11/16/17 05:30 Potassium 4.1 mmol/L (3.5-5.1) 11/16/17 05:30 Chloride 101 mmol/L (98-107) 11/16/17 05:30 Carbon Dioxide 30 mmol/L (21-32) 11/16/17 05:30 Anion Gap 11 MMOL/L (8-16) 11/16/17 05:30 BUN 38 mg/dL (7-18) H 11/16/17 05:30 Creatinine 5.8 mg/dL (0.55-1.02) H 11/16/17 05:30 Creat Clearance w eGFR 7.19 (>60) 11/16/17 05:30 Calcium 8.4 mg/dL (8.5-10.1) L 11/16/17 05:30 Total Bilirubin 0.7 mg/dL (0.2-1.0) 11/16/17 05:30 AST 16 U/L (15-37) 11/16/17 05:30 ALT 10 U/L (12-78) L 11/16/17 05:30 Alkaline Phosphatase 66 U/L (45-117) D 11/16/17 05:30 Total Protein 5.2 g/dl (6.4-8.2) L 11/16/17 05:30 Albumin 2.6 g/dl (3.4-5.0) L 11/16/17 05:30 Active Medications Sodium Chloride (Normal Saline -) 250 mls @ 3,000 mls/hr IV PRN PRN PRN Reason: Hypotension during Dialysis Stop: 11/16/17 16:29 Insulin Aspart (Novolog Vial Sliding Scale -) 1 vial SQ Q6HPO [facility]; Protocol Last Admin: 11/16/17 11:27 Dose: Not Given Pantoprazole Sodium (Protonix -) 40 mg PO DAILY [facility] Last Admin: 11/16/17 10:42 Dose: 40 mg ASSESSMENT/PLAN: Patient is a 72 y/o female with a history of ESRD(M,W,F), HTN, HLD, NIDDM, anemia who is here for GI bleed #symptomatic anemia 2/2 to suspected GI bleed - head CT: moderate atrophy, no lesions no hemorrhage - abdominal US: normal size spleen, galbladder polyp, atrophic kidneys - EGD: non bleeding duodenal ulcer - colonoscopy: diverticulosis - continue protonix 40 mg po daily - hepatitis panel negative - f/u CBC - patient to receive another unit of blood with HD today per nephro #ESRD - hemodialysis today - f/u Dr. Davis - continue holding antihypertensive medications for now #DM - SS #DVT ppx - SCD's - consider anticoagulation if patient hemodynamically stable FEN - renal diet - NS Dispo; to med surg Visit type - Emergency Visit Emergency Visit: No - New Patient This patient is new to me today: Yes Date on this admission: 11/16/17 - Critical Care Critical Care patient: Yes Total Critical Care Time (in minutes): 45 Critical Care Statement: The care of this patient involved high complexity decision making to prevent further life threatening deterioration of the patient 's condition and/or to evaluate & treat vital organ system(s) failure or risk of failure.
[2017-11-16 16:29] LABS: HBSAG SCREEN Negative (Negative); HEP B CORE AB, TOT Negative (Negative)
--- NOTE | 2017-11-16 17:40 | PN ---
Physical Exam: SUBJECTIVE: Patient seen and examined OBJECTIVE: Vital Signs Period Temp Pulse Resp BP Sys/Garnica Pulse Ox Last 24 Hr 98 F-98.7 F 72-98 14-20 96-194/43-98 100-100 GENERAL: The patient is awake, alert, and fully oriented, in no acute distress. HEAD: Normal with no signs of trauma. EYES: PERRL, extraocular movements intact, sclera anicteric, conjunctiva clear. No ptosis. ENT: Ears normal, nares patent, oropharynx clear without exudates, moist mucous membranes. NECK: Trachea midline, full range of motion, supple. LUNGS: Breath sounds equal, clear to auscultation bilaterally, no wheezes, no crackles, no accessory muscle use. HEART: Regular rate and rhythm, S1, S2 without murmur, rub or gallop. ABDOMEN: Soft, nontender, nondistended, normoactive bowel sounds, no guarding, no rebound, no hepatosplenomegaly, no masses. EXTREMITIES: 2+ pulses, warm, well-perfused, no edema. NEUROLOGICAL: Cranial nerves II through XII grossly intact. Normal speech, gait not observed. PSYCH: Normal mood, normal affect. SKIN: Warm, dry, normal turgor, no rashes or lesions noted Laboratory Results - last 24 hr 11/13/17 11/14/17 11/14/17 11:21 20:10 20:10 WBC RBC Hgb Hct MCV MCH MCHC RDW Plt Count MPV Sodium Potassium Chloride Carbon Dioxide Anion Gap BUN Creatinine Creat Clearance w eGFR POC Glucometer Random Glucose Calcium Phosphorus Magnesium Total Bilirubin AST ALT Alkaline Phosphatase Total Protein Albumin Hepatitis A Ab Total Negative Hep Bs Antigen Negative Hep Bs Antibody Reactive Hep B Core Total Ab Negative Hep C Ab Diagnostic 0.1 Liver Fibrosis Interp Blood Type Antibody Screen Crossmatch See Detail 11/15/17 11/16/17 11/16/17 23:59 05:30 05:30 WBC 11.8 H RBC 2.45 L Hgb 7.6 L Hct 22.8 L MCV 93.0 MCH 31.2 MCHC 33.6 RDW 15.9 H Plt Count 161 MPV 8.8 Sodium 142 Potassium 4.1 Chloride 101 Carbon Dioxide 30 Anion Gap 11 BUN 38 H Creatinine 5.8 H Creat Clearance w eGFR 7.19 POC Glucometer 132.46283 Random Glucose 95 Calcium 8.4 L Phosphorus 3.9 Magnesium 1.7 L Total Bilirubin 0.7 AST 16 ALT 10 L Alkaline Phosphatase 66 D Total Protein 5.2 L Albumin 2.6 L Hepatitis A Ab Total Hep Bs Antigen Hep Bs Antibody Hep B Core Total Ab Hep C Ab Diagnostic Liver Fibrosis Interp Blood Type Antibody Screen Crossmatch 11/16/17 11/16/17 11/16/17 05:54 10:37 15:15 WBC RBC Hgb Hct MCV MCH MCHC RDW Plt Count MPV Sodium Potassium Chloride Carbon Dioxide Anion Gap BUN Creatinine Creat Clearance w eGFR POC Glucometer 119.60477 170.57067 Random Glucose Calcium Phosphorus Magnesium Total Bilirubin AST ALT Alkaline Phosphatase Total Protein Albumin Hepatitis A Ab Total Hep Bs Antigen Hep Bs Antibody Hep B Core Total Ab Hep C Ab Diagnostic Liver Fibrosis Interp Blood Type A POSITIVE Antibody Screen Negative Crossmatch See Detail 11/16/17 17:14 WBC RBC Hgb Hct MCV MCH MCHC RDW Plt Count MPV Sodium Potassium Chloride Carbon Dioxide Anion Gap BUN Creatinine Creat Clearance w eGFR POC Glucometer 168.69010 Random Glucose Calcium Phosphorus Magnesium Total Bilirubin AST ALT Alkaline Phosphatase Total Protein Albumin Hepatitis A Ab Total Hep Bs Antigen Hep Bs Antibody Hep B Core Total Ab Hep C Ab Diagnostic Liver Fibrosis Interp Blood Type Antibody Screen Crossmatch Active Medications Generic Name Dose Route Start Last Admin Trade Name Freq PRN Reason Stop Dose Admin Insulin Aspart 1 vial 11/14/17 13:30 11/16/17 11:27 Novolog Vial Sliding Scale - SQ Not Given Q6HPO [facility] Protocol Pantoprazole Sodium 40 mg 11/15/17 10:00 11/16/17 10:42 Protonix - PO 40 mg DAILY [facility] Administration ASSESSMENT/PLAN: 72 y/o female with a PMHx of ESRD (Dialysis MWF), HTN, HLD, NIDDM and Anemia presents to the ED after experiencing some lightheadedness and blurry vision during dialysis was observed for symptomatic anemia #Symptomatic Anemia - First time experiencing fogginess, blurry vision and ?Hypotension during dialysis - Seen by Dr. Davis last week and told her Hgb was 10.4 - Likely due to anemia, orthostatics pending - CT Head: No gross evidence of a focal intracranial lesion or hemorrhage is seen. - S/P 3 units pRBCs transfused total (1 in ED [11/13], 2 pre-EGD [11/14]) - FOBT positive - GI (Dr. 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 - Lactic Acid 2.1 --> 2.5 --> 1.6 - No Indication for ABx at this time #ESRD - Anuric - Has Dialysis MWF - Patient has not picked up her Renvela since June, Continue Renvela - Nephrology (Dr. Allen) Consulted # HTN - Hold home BP Meds (Hydralazine, Bystolic, norvasc) - Will consider restarting if patient becomes Hypertensive - Med's rec'ed # NIDDM - BGM, ISS ACHS # PPx - DVT: SCDs for now, Cannot use heparin as we are ruling out GI Bleed # FEN - PO Fluids - Hyperkalemia on HD, Resolved - Diabetic/Renal Diet, NPO after midnight for colonoscopy Dispo: Pending transfer to Med-Surg from MICU Visit type - Emergency Visit Emergency Visit: No - New Patient This patient is new to me today: No - Critical Care Critical Care patient: No - Discharge Referral Referred to [facility] Med P.C[facility] No
[2017-11-16] MEDS ORDERED: INSULIN (NOVOLOG) ASPART 100 UNITS/ML 10ML VIAL ONE (17:56)
[2017-11-17] MEDS: INSULIN SLIDING SCALE (NOVOLOG) 1 VIAL SQ SCH ×3 (00:05→13:04)
[2017-11-17 06:55] LABS: HEMATOCRIT 26.9 % (32.4-45.2); HEMOGLOBIN 9.1 GM/dL (10.7-15.3); MCHC 33.7 g/dl (32.0-36.0); MEAN CELL VOLUME 91.9 fl (80-96); MEAN PLT VOLUME 9.2 fl (7.5-11.1); PLATELET COUNT 178 K/MM3 (134-434); RBC 2.92 M/mm3 (3.60-5.2); RDW 15.2 % (11.6-15.6); WHITE BLOOD COUNT 13.1 K/mm3 (4.0-10.0)
[2017-11-17 07:07] LABS: ANION GAP 8 MMOL/L (8-16); BLOOD UREA NITROGEN 17 mg/dL (7-18); CALCIUM 7.5 mg/dL (8.5-10.1); CHLORIDE 98 mmol/L (98-107); CO2 32 mmol/L (21-32); CREATININE 4.1 mg/dL (0.55-1.02); GLUCOSE,RANDOM 133 mg/dL (74-106); POTASSIUM 3.6 mmol/L (3.5-5.1); SODIUM 138 mmol/L (136-145)
--- NOTE | 2017-11-17 08:14 | PN ---
Physical Exam: SUBJECTIVE: Patient seen and examined in the ICU. Resting comfortably in bed with no current complaints. She states that yesterday during dialysis she did not ask how much fluid they were taking off and that they took off too much. She started feeling lightheaded and dizzy. After dialysis she received a unit of blood and she says she felt much better. She had no complaints overnight and is asking about going home. Denies any lightheadedness, dizziness, vision changes, n/v/d. OBJECTIVE: Vital Signs Period Temp Pulse Resp BP Sys/Garnica Pulse Ox Last 24 Hr 97.8 F-98.7 F 63-98 13-24 96-194/43-79 100-100 GENERAL: A&O, no acute distress HEAD: Normocephalic, atraumatic. EYES: PERRL, EOMI, no scleral icterus EARS, NOSE, THROAT: oropharynx clear without exudates. Moist mucous membranes. NECK: supple without lymphadenopathy LUNGS: CTA b/l, no crackles or wheezes HEART: Regular rate and rhythm, normal S1 and S2 without murmur, rub or gallop. ABDOMEN: Soft, nontender to palpation, normoactive bowel sounds MUSCULOSKELETAL: No bony deformities or tenderness. No CVA tenderness. UPPER EXTREMITIES: 2+ pulses, warm, well-perfused. No cyanosis. No clubbing. No peripheral edema. LOWER EXTREMITIES: 2+ pulses, warm, well-perfused. No calf tenderness. No peripheral edema. NEUROLOGICAL: Cranial nerves II-XII grossly intact. Normal speech. PSYCHIATRIC: Cooperative. Good eye contact. Appropriate mood and affect. SKIN: Warm, dry, normal turgor, no rashes or lesions noted Laboratory Results - last 24 hr 11/13/17 11/14/17 11/14/17 11:21 20:10 20:10 WBC RBC Hgb Hct MCV MCH MCHC RDW Plt Count MPV Sodium Potassium Chloride Carbon Dioxide Anion Gap BUN Creatinine Creat Clearance w eGFR POC Glucometer Random Glucose Calcium Hepatitis A Ab Total Negative Hep Bs Antigen Negative Hep Bs Antibody Reactive Hep B Core Total Ab Negative Hep C Ab Diagnostic 0.1 Liver Fibrosis Interp Blood Type A POSITIVE Antibody Screen Negative Crossmatch See Detail 11/16/17 11/16/17 11/16/17 10:37 15:15 17:14 WBC RBC Hgb Hct MCV MCH MCHC RDW Plt Count MPV Sodium Potassium Chloride Carbon Dioxide Anion Gap BUN Creatinine Creat Clearance w eGFR POC Glucometer 170.83363 168.90847 Random Glucose Calcium Hepatitis A Ab Total Hep Bs Antigen Hep Bs Antibody Hep B Core Total Ab Hep C Ab Diagnostic Liver Fibrosis Interp Blood Type A POSITIVE Antibody Screen Negative Crossmatch See Detail 11/16/17 11/17/17 11/17/17 23:53 06:05 06:20 WBC 13.1 H RBC 2.92 L Hgb 9.1 L Hct 26.9 L D MCV 91.9 MCH 31.0 MCHC 33.7 RDW 15.2 Plt Count 178 MPV 9.2 Sodium Potassium Chloride Carbon Dioxide Anion Gap BUN Creatinine Creat Clearance w eGFR POC Glucometer [phone] Random Glucose Calcium Hepatitis A Ab Total Hep Bs Antigen Hep Bs Antibody Hep B Core Total Ab Hep C Ab Diagnostic Liver Fibrosis Interp Blood Type Antibody Screen Crossmatch 11/17/17 06:20 WBC RBC Hgb Hct MCV MCH MCHC RDW Plt Count MPV Sodium 138 Potassium 3.6 Chloride 98 Carbon Dioxide 32 Anion Gap 8 BUN 17 Creatinine 4.1 H Creat Clearance w eGFR 10.73 POC Glucometer Random Glucose 133 H Calcium 7.5 L Hepatitis A Ab Total Hep Bs Antigen Hep Bs Antibody Hep B Core Total Ab Hep C Ab Diagnostic Liver Fibrosis Interp Blood Type Antibody Screen Crossmatch Active Medications Generic Name Dose Route Start Last Admin Trade Name Freq PRN Reason Stop Dose Admin Insulin Aspart 1 vial 11/14/17 13:30 11/17/17 06:07 Novolog Vial Sliding Scale - SQ 2 units Q6HPO [facility] Administration Protocol Pantoprazole Sodium 40 mg 11/15/17 10:00 11/16/17 10:42 Protonix - PO 40 mg DAILY RACHELL Administration ASSESSMENT/PLAN: 72 yo female with PMH ESRD (dialysis MWF), HTN, HLD , NIDDM, Anemia admitted for symptomatic anemia with Hgb as low as 5.2 on this admission, has required 4 units PRBCs. Symptomatic Anemia -Most likely secondary to acute blood loss from GI tract. Pt with duodenal ulcer which is no longer bleeding. -Pt has now received a total of 4 units PRBCs. 1 unit in ED 11/13, 2 units on , 1 unit after dialysis on 11/16 -H/H as low as 5.2/15.8 on this admission; currently stable at 9.1/27.2 -Pt is currently asymptomatic with no complaints and requesting timeline for discharge -GI consult appreciated - Dr. Adler -EGD/Colonoscopy on 11/17 5mm non bleeding ulcer at junction of duodenal bulb/1st portion of duodenum Diverticulosis with no evidence of diverticulitis, 9mm polyp removed -Continue Protonix 40 mg PO Daily ESRD on Dialysis -Pt with fistula on left arm, good thrill and audible bruit -Pt with symptomatic hypotension yesterday during dialysis Pt states usually has 2L of fluid taken off during dialysis but that yesterday it was set to 3L -Received unit PRBCs after dialysis with resolution of lightheadedness and dizziness -BUN after dialysis 17 (38 prior to dialysis yesterday) HTN -Pt had episode of Hypotension during dialysis yesterday to -B.p. currently elevated at 161/79 -Restart b.p medication today Bystolic 7.5 mg PO Daily Norvasc 10 mg PO Daily NIDDM -BGMs ACHS -Insulin sliding scale for glycemic control -Glucose well controlled with only 6 total units given in previous 24 hrs DVT Prophylaxis -Early ambulation FEN -Fluids: none -Electrolytes: Mg 1.7, BMP in AM -Nutrition: Renal Diet Disposition Transfer to med/surg Visit type - Emergency Visit Emergency Visit: Yes ED Registration Date: 11/13/17 Care time: The patient presented to the Emergency Department on the above date and was hospitalized for further evaluation of their emergent condition. - New Patient This patient is new to me today: Yes Date on this admission: 11/17/17 - Critical Care Critical Care patient: No
--- NOTE | 2017-11-17 08:52 | PN ---
Physical Exam: SUBJECTIVE: Patient is a 72 y/o female with a history of ESRD(M,W,F), HTN, HLD, NIDDM, anemia who is here for GI bleed. Patient received one unit of blood yesterday after dialysis. She has no complaints today, states she feels better. She reported having a few episodes of diarrhea overnight. OBJECTIVE: Vital Signs Temperature 98 F 11/17/17 06:00 Pulse Rate 79 11/17/17 06:00 Respiratory Rate 14 11/17/17 06:00 Blood Pressure 161/79 11/17/17 06:00 O2 Sat by Pulse Oximetry (%) 100 11/16/17 22:00 GENERAL: The patient is awake, alert, and fully oriented, in no acute distress. EYES: PERRL, extraocular movements intact ENT: moist mucous membranes. NECK: Trachea midline, full range of motion, supple. LUNGS: Breath sounds equal, clear to auscultation bilaterally HEART: Regular rate and rhythm, Systolic murmur loudest at left upper sternal border radiates to the carotids ABDOMEN: Soft, nontender, nondistended, normoactive bowel sounds EXTREMITIES: 2+ pulses, warm, well-perfused, no edema. PSYCH: Normal mood, normal affect. SKIN: Warm, dry, normal turgor, no rashes or lesions noted CBC, BMP 11/17/17 06:20 11/17/17 06:20 Active Medications Insulin Aspart (Novolog Vial Sliding Scale -) 1 vial SQ Q6HPO [facility]; Protocol Last Admin: 11/17/17 06:07 Dose: 2 units Pantoprazole Sodium (Protonix -) 40 mg PO DAILY [facility] Last Admin: 11/16/17 10:42 Dose: 40 mg ASSESSMENT/PLAN: Patient is a 72 y/o female with a history of ESRD(M,W,F), HTN, HLD, NIDDM, anemia who is here for GI bleed. Renal ESRD - hemodialysis yesterday - f/u Dr. Davis - restart home BP medications as tolerated Hematology symptomatic anemia 2/2 to suspected GI bleed - head CT: moderate atrophy, no lesions no hemorrhage - abdominal US: normal size spleen, galbladder polyp, atrophic kidneys - EGD: non bleeding duodenal ulcer - colonoscopy: diverticulosis - continue protonix 40 mg po daily - hepatitis panel negative - f/u CBC - received PRBC 11/16, hgb brigida appropriately DVT ppx - SCD's - consider anticoagulation if patient hemodynamically stable Endocrine DM - SS - 6 units given in last 24 hours FEN - renal diet Dispo; to med surg Visit type - Emergency Visit Emergency Visit: No - New Patient This patient is new to me today: No - Critical Care Critical Care patient: Yes Total Critical Care Time (in minutes): 36 Critical Care Statement: The care of this patient involved high complexity decision making to prevent further life threatening deterioration of the patient 's condition and/or to evaluate & treat vital organ system(s) failure or risk of failure.
--- NOTE | 2017-11-17 09:02 | PN ---
Teaching Attending Note Name of Resident: Norm Zavala ATTENDING PHYSICIAN STATEMENT I saw and evaluated the patient. I reviewed the resident's note and discussed the case with the resident. I agree with the resident's findings and plan as documented with exceptions below. SUBJECTIVE: Patient seen and examined. Stools clearing from dark to brown. No dizziness, nausea, vomiting or abdominal pain. tolerating diet well. Eager to go home. OBJECTIVE: Vital Signs Period Temp Pulse Resp BP Sys/Garnica Pulse Ox Last 24 Hr 97.8 F-98.7 F 63-98 13-24 96-194/43-79 100-100 Intake & Output 11/14/17 11/15/17 11/16/17 11/17/17 23:59 23:59 23:59 23:59 Intake Total 100 3000 670 60 Output Total 1 Balance 100 3000 669 60 Weight 134 lb 134 lb 3.2 oz 133 lb General: sitting in bed in no acute distress Abdomen: soft, obese, NT throughout, positive bowel sounds Chest: CTAB, no rales or wheezing Extremities: no edema Home Medications Medication Instructions Recorded Amlodipine Besylate 10 mg PO DAILY 11/13/17 Nebivolol [Bystolic -] 7.5 mg PO DAILY 11/13/17 Sevelamer Carbonate [Renvela] 1,600 mg PO TID 11/13/17 hydrALAZINE HCL [Apresoline -] 25 mg PO BID 11/13/17 Active Medications Insulin Aspart (Novolog Vial Sliding Scale -) 1 vial SQ Q6HPO [facility]; Protocol Last Admin: 11/17/17 06:07 Dose: 2 units Pantoprazole Sodium (Protonix -) 40 mg PO DAILY [facility] Last Admin: 11/16/17 10:42 Dose: 40 mg Laboratory Results - last 24 hr 11/13/17 11/14/17 11/14/17 11:21 20:10 20:10 WBC RBC Hgb Hct MCV MCH MCHC RDW Plt Count MPV Sodium Potassium Chloride Carbon Dioxide Anion Gap BUN Creatinine Creat Clearance w eGFR POC Glucometer Random Glucose Calcium Hepatitis A Ab Total Negative Hep Bs Antigen Negative Hep Bs Antibody Reactive Hep B Core Total Ab Negative Hep C Ab Diagnostic 0.1 Liver Fibrosis Interp Blood Type A POSITIVE Antibody Screen Negative Crossmatch See Detail 11/16/17 11/16/17 11/16/17 10:37 15:15 17:14 WBC RBC Hgb Hct MCV MCH MCHC RDW Plt Count MPV Sodium Potassium Chloride Carbon Dioxide Anion Gap BUN Creatinine Creat Clearance w eGFR POC Glucometer 170.48677 168.00885 Random Glucose Calcium Hepatitis A Ab Total Hep Bs Antigen Hep Bs Antibody Hep B Core Total Ab Hep C Ab Diagnostic Liver Fibrosis Interp Blood Type A POSITIVE Antibody Screen Negative Crossmatch See Detail 11/16/17 11/17/17 11/17/17 23:53 06:05 06:20 WBC 13.1 H RBC 2.92 L Hgb 9.1 L Hct 26.9 L D MCV 91.9 MCH 31.0 MCHC 33.7 RDW 15.2 Plt Count 178 MPV 9.2 Sodium Potassium Chloride Carbon Dioxide Anion Gap BUN Creatinine Creat Clearance w eGFR POC Glucometer 190.19014 160.32215 Random Glucose Calcium Hepatitis A Ab Total Hep Bs Antigen Hep Bs Antibody Hep B Core Total Ab Hep C Ab Diagnostic Liver Fibrosis Interp Blood Type Antibody Screen Crossmatch 11/17/17 06:20 WBC RBC Hgb Hct MCV MCH MCHC RDW Plt Count MPV Sodium 138 Potassium 3.6 Chloride 98 Carbon Dioxide 32 Anion Gap 8 BUN 17 Creatinine 4.1 H Creat Clearance w eGFR 10.73 POC Glucometer Random Glucose 133 H Calcium 7.5 L Hepatitis A Ab Total Hep Bs Antigen Hep Bs Antibody Hep B Core Total Ab Hep C Ab Diagnostic Liver Fibrosis Interp Blood Type Antibody Screen Crossmatch EGD - non bleeding duodenal ulcer Colonoscopy - diverticulosis, polypectomy ASSESSMENT AND PLAN: 72yo F with PMH HTN, DM, ESRD (MWF) presented to the ER after episode of hypotension and near syncope during HD earlier today and found to be anemic with Hgb 7.4. case complicated by development of melena and not responding to blood transfusions was transferred to MICU and had emergent EGD. -Symptomatic anemia, s/p 3 units PRBC , suspected from blood loss from GI tract -Duodenal ulcer -Diverticulosis/Descending colon polyp s/p polypectomy -Hypotension/ presyncope during HD, from ?intermittent bleed -Leucocytosis, suspect reactive, no clinical evidence of infection -Hypotension, resolved -Lactic acidosis, resolved -NIDDM -ESRD on HD -Hypomagnesemia Plan: H/h stable. EGD/colonoscopy results noted. GI input appreciated. Protonix 40 mg Daily, avoid NSAIDs, outpatient biopsy results follow up. Capsule endoscopy outpatient if recurrent anemia. Blood cx neg, no clinical evidence of infecton Resume anti-hypertensives as BP tolerates. Resume oral DM agents on d/c. PO as tolerated. ISS. Nephrology input appreciated, HD per renal Replete Mg Repeat CBC this afternoon. SCDs for DVTPPX dispo d/c today pending repeat CBC this afternoon if stable. Patient lives with family, does not feel need for home services. Plan discussed with patient in detail, all questions answered. Care co-ordinated with ICU team. The care of this patient involved high complexity decision making to prevent further life threatening deterioration of the patient's condition and/or to evaluate & treat vital organ system(s) failure or risk of failure. 35 mins
[2017-11-17] MEDS: PANTOPRAZOLE 40 MG TABLET (FP) PO SCH (09:48)
[2017-11-17] MEDS ORDERED: amLODIPine BESYLATE 10 MG TABLET (FP) PO SCH (10:00)
[2017-11-17] MEDS ORDERED: NEBIVOLOL PO SCH (10:45)
[2017-11-17] MEDS ORDERED: NEBIVOLOL 5 MG TABLET (FP) PO SCH (10:45)
[2017-11-17 11:17] LABS: MAGNESIUM 1.7 mg/dL (1.8-2.4); PHOSPHOROUS 3.6 mg/dL (2.5-4.9)
--- NOTE | 2017-11-17 12:01 | PN ---
Teaching Attending Note Name of Resident: Francia Leon ATTENDING PHYSICIAN STATEMENT I saw and evaluated the patient. I reviewed the resident's note and discussed the case with the resident. I agree with the resident's findings and plan as documented. SUBJECTIVE: Pt seen and examined in the ICU. No bleeding noted. Tolerated PO. Some dizziness with HD yesterday but now feels at baseline. OBJECTIVE: Vital Signs Period Temp Pulse Resp BP Sys/Garnica Pulse Ox Last 24 Hr 97.8 F-98.7 F 63-93 13-24 96-194/43-79 100-100 Intake & Output 11/14/17 11/15/17 11/16/17 11/17/17 23:59 23:59 23:59 23:59 Intake Total 100 3000 670 60 Output Total 1 Balance 100 3000 669 60 Weight 60.781 kg 60.872 kg 60.328 kg Gen: NAD at rest Heart: RRR Lung: decreased breath sounds at the bases Abd: soft, nontender Ext: no edema CBC, BMP 11/17/17 06:20 11/17/17 06:20 Active Medications Amlodipine Besylate (Norvasc -) 10 mg PO DAILY [facility] Insulin Aspart (Novolog Vial Sliding Scale -) 1 vial SQ Q6HPO [facility]; Protocol Last Admin: 11/17/17 06:07 Dose: 2 units Magnesium Oxide (Mag-Ox -) 800 mg PO ONCE ONE Stop: 11/17/17 11:51 Nebivolol 2.5 mg/ Nebivolol 5 (mg) 7.5 mg PO DAILY [facility] Pantoprazole Sodium (Protonix -) 40 mg PO DAILY [facility] Last Admin: 11/17/17 09:48 Dose: 40 mg ASSESSMENT AND PLAN: GI Bleed Duodenal Ulcer Acute Blood Loss Anemia Lactic Acidosis resolved ESRD on HD DM HTN - monitor H/H - HD per renal - PO as tolerated - protonix - DVT prophylaxis - can monitor on floor or d/c home
[2017-11-17] MEDS ORDERED: MAGNESIUM OXIDE 400 MG TABLET (FP) PO ONE (12:45)
[2017-11-17 13:04] LABS: HEMATOCRIT 27.2 % (32.4-45.2); HEMOGLOBIN 9.1 GM/dL (10.7-15.3); MCH 30.9 pg (25.7-33.7); MCHC 33.5 g/dl (32.0-36.0); MEAN CELL VOLUME 92.4 fl (80-96); MEAN PLT VOLUME 9.2 fl (7.5-11.1); PLATELET COUNT 202 K/MM3 (134-434); RBC 2.94 M/mm3 (3.60-5.2); RDW 15.5 % (11.6-15.6); WHITE BLOOD COUNT 13.6 K/mm3 (4.0-10.0)
[2017-11-17 13:41] LABS: MAGNESIUM 1.9 mg/dL (1.8-2.4); PHOSPHOROUS 3.6 mg/dL (2.5-4.9)
[2017-11-17 13:43] VITALS: BP 167/75; PULSE 76
[2017-11-17 15:04] VITALS: TEMP 98.2
[2017-11-17] MEDS ORDERED: SODIUM CHLORIDE 250 ML IV PRN (15:16)
--- NOTE | 2017-11-17 15:16 | PN ---
Progress Note (short form) - Note Progress Note: Renal Follow up for ESRD on HD Pt seen and examined in the ICU awake and alert no acute complaints no CP, sob, abd pain, fever, chills s/p dialysis on Thursday feels better overall Vital Signs Temperature 98.2 F 11/17/17 08:00 Pulse Rate 76 11/17/17 13:42 Respiratory Rate 14 11/17/17 13:42 Blood Pressure 167/75 11/17/17 13:42 O2 Sat by Pulse Oximetry (%) 100 11/16/17 22:00 Intake & Output 11/14/17 11/15/17 11/16/17 11/17/17 23:59 23:59 23:59 23:59 Intake Total 100 3000 670 60 Output Total 1 Balance 100 3000 669 60 Weight 60.781 kg 60.872 kg 60.328 kg NAD awake and alet trace LE edema CBC, BMP 11/17/17 12:37 11/17/17 06:20 Current Medications Amlodipine Besylate (Norvasc -) 10 mg PO DAILY [facility] Last Admin: 11/17/17 14:20 Dose: 10 mg Insulin Aspart (Novolog Vial Sliding Scale -) 1 vial SQ Q6HPO [facility]; Protocol Last Admin: 11/17/17 13:04 Dose: 2 units Nebivolol 2.5 mg/ Nebivolol 5 (mg) 7.5 mg PO DAILY [facility] Last Admin: 11/17/17 14:23 Dose: 7.5 mg Pantoprazole Sodium (Protonix -) 40 mg PO DAILY [facility] Last Admin: 11/17/17 09:48 Dose: 40 mg 72 year old woman with Hx of ESRD on HD (MWF) secondary to diabetic nephropathy , Hypertension, DM2 who presented with hypotension and pre-syncope at dialysis and found to have acute Anemia. #Hypotension due to acute anemia #Pre-syncope #Acute Anemia secondary to GI Bleed #Leukocytosis #ESRD on HD #Hx of Hypertension #DM s/p dialysis yesterday with 2L UF and 1 PRBC transfusion s/p Colonoscopy that showed diverticulosis, no melena or overt GI bleeding noted overnight will continue high dose KENNA with HD Continue PPI as per GI Continue amlodipine for BP Thank you Gavino Davis DO
--- NOTE | 2017-11-17 18:04 | PATH ---
Surgical Pathology Report Patient Name: MARILEE DWYER [facility]. Rec. #: [id number] /Age/Gender: 1945 (Age: 72) / F Account: [id number] Location: ICU [employer] Taken: 11/14/2017 Received: 11/16/2017 Reported: 11/17/2017 Physicians: Brianne Jin M.D. Specimen(s) Received A: BX DUODENAL BULB ULCER B: BX ANGULARIS AND BODY Clinical History GI bleed Final Diagnosis A. DUODENUM BULB ULCER, BIOPSY: DUODENAL MUCOSA SHOWING ACUTE AND CHRONIC DUODENITIS. B. ANGULARIS AND BODY, BIOPSY: GASTRIC MUCOSA WITH NO DIAGNOSTIC ANOMALIES. IMMUNOSTAIN IS NEGATIVE FOR H. PYLORI ORGANISMS. Electronically Signed Grant Lopez M.D. Gross Description A. Received in formalin, labeled "duodenal bulb ulcer biopsy" are 4 cristina, irregular portions of soft tissue ranging from 0.2-0.3 cm. in greatest dimension. The specimens are submitted in toto in one cassette. B. Received in formalin, labeled "angularis and body of stomach biopsy" are 3 cristina, irregular portions of soft tissue ranging from 0.1-0.3 cm. in greatest dimension. The specimens are submitted in toto in one cassette. 11/16/201711/16/2017
--- NOTE | 2017-11-17 18:14 | PATH ---
Surgical Pathology Report Patient Name: MARILEE DWYER [facility] [place]. Rec. #: [id number] /Age/Gender: 1945 (Age: 72) / F Account: [id number] Location: ICU HEALTH CARE ANALYST Taken: 11/16/2017 Received: 11/16/2017 Reported: 11/17/2017 Physicians: Anatoliy Adler D.O. PHYSICIAN EMERGENCY DEPT Specimen(s) Received BX DESCENDING COLON POLYP Clinical History Anemia, guaiac positive stool Final Diagnosis DESCENDING COLON POLYP, POLYPECTOMY: TUBULAR ADENOMA. Electronically Signed Grant Lopez M.D. Gross Description Received in formalin, labeled "polyp from descending colon" is a cristina, irregular portion of soft tissue measuring 0.4 cm. in greatest dimension. The specimen is submitted in toto in one cassette. /11/16/2017 saudi11/16/2017
--- NOTE | 2017-11-17 18:46 | DS ---
Physical Exam: SUBJECTIVE: Patient seen and examined in the ICU. Resting comfortably in bed with no current complaints. She states that yesterday during dialysis she did not ask how much fluid they were taking off and that they took off too much. She started feeling lightheaded and dizzy. After dialysis she received a unit of blood and she says she felt much better. She had no complaints overnight and is asking about going home. Denies any lightheadedness, dizziness, vision changes, n/v/d. OBJECTIVE: Vital Signs Period Temp Pulse Resp BP Sys/Garnica Pulse Ox Last 24 Hr 97.8 F-98.2 F 63-96 13-24 115-167/43-79 100-100 PHYSICAL EXAM GENERAL: A&O, no acute distress HEAD: Normocephalic, atraumatic. EYES: PERRL, EOMI, no scleral icterus EARS, NOSE, THROAT: oropharynx clear without exudates. Moist mucous membranes. NECK: supple without lymphadenopathy LUNGS: CTA b/l, no crackles or wheezes HEART: Regular rate and rhythm, normal S1 and S2 without murmur, rub or gallop. ABDOMEN: Soft, nontender to palpation, normoactive bowel sounds MUSCULOSKELETAL: No bony deformities or tenderness. No CVA tenderness. UPPER EXTREMITIES: 2+ pulses, warm, well-perfused. No cyanosis. No clubbing. No peripheral edema. LOWER EXTREMITIES: 2+ pulses, warm, well-perfused. No calf tenderness. No peripheral edema. NEUROLOGICAL: Cranial nerves II-XII grossly intact. Normal speech. PSYCHIATRIC: Cooperative. Good eye contact. Appropriate mood and affect. SKIN: Warm, dry, normal turgor, no rashes or lesions noted LABS Laboratory Results - last 24 hr 11/13/17 11/16/17 11/17/17 11:21 23:53 06:05 WBC RBC Hgb Hct MCV MCH MCHC RDW Plt Count MPV Sodium Potassium Chloride Carbon Dioxide Anion Gap BUN Creatinine Creat Clearance w eGFR POC Glucometer [id number] [phone] Random Glucose Calcium Phosphorus Magnesium Blood Type A POSITIVE Antibody Screen Negative Crossmatch See Detail 11/17/17 11/17/17 11/17/17 06:20 06:20 08:00 WBC 13.1 H RBC 2.92 L Hgb 9.1 L Hct 26.9 L D MCV 91.9 MCH 31.0 MCHC 33.7 RDW 15.2 Plt Count 178 MPV 9.2 Sodium 138 Potassium 3.6 Chloride 98 Carbon Dioxide 32 Anion Gap 8 BUN 17 Creatinine 4.1 H Creat Clearance w eGFR 10.73 POC Glucometer Random Glucose 133 H Calcium 7.5 L Phosphorus 3.6 Cancelled Magnesium 1.7 L Cancelled Blood Type Antibody Screen Crossmatch 11/17/17 11/17/17 11/17/17 12:37 12:37 13:01 WBC 13.6 H RBC 2.94 L Hgb 9.1 L Hct 27.2 L MCV 92.4 MCH 30.9 MCHC 33.5 RDW 15.5 Plt Count 202 MPV 9.2 Sodium Potassium Chloride Carbon Dioxide Anion Gap BUN Creatinine Creat Clearance w eGFR POC Glucometer [phone] Random Glucose Calcium Phosphorus 3.6 Magnesium 1.9 Blood Type Antibody Screen Crossmatch IMAGING: CXR 11/13: No acute pulmonary pathology Head CT 11/13: Moderate atrophy, No gross IC lesion or hemorrhage U/S Abdomen 11/15: Normal size spleen, gallbladder polyp, atrophic kidneys HOSPITAL COURSE: Date of Admission:11/13/17 Date of Discharge: 11/17/17 Pt was admitted for symptomatic anemia with lightheadedness and dizziness during dialysis. Pt has known history of ESRD on dialysis and anemia but had never experienced these symptoms before. Pt received a total of 4 units PRBCs during this admission and H/H is now stable at 9.1/27.2. During this admission, the pt was seen by GI who recommended a colonoscopy/endoscopy to look for source of blood loss. EGD/Colonoscopy on 11/17 5mm non bleeding ulcer at junction of duodenal bulb/1st portion of duodenum Diverticulosis with no evidence of diverticulitis, 9mm polyp removed Pt was started on Protonix daily. Pt instructed to f/u with GI (Dr. Adler) within 1-2 weeks of discharge for biopsy results and further management. Pt had one episode of symptomatic hypotension during dialysis on 11/16. She received one unit PRBC after dialysis and symptoms completely resolved. Home HTN medications were resumed and pt deemed stable enough for discharge. Pt is not on home Diabetes medications, but did require some insulin during this admission. Pt instructed to follow up with primary care physician within 1 week for follow up and consideration of oral medications for her NIDDM. Minutes to complete discharge: 45 Discharge Summary Reason For Visit: ESRD; LEUKOCYTOSIS; SECONDARY ANEMIA Condition: Good - Instructions Diet, Activity, Other Instructions: Follow up EGD/colonoscopy biopsy results outpatient. Please call Dr. Storm's office on discharge to follow up in 1 week to discuss your biopsy results. Following blood test in 1 week: CBC (Complete Blood Count). Follow up with your primary physician in 1 week. Your blood sugars were noted to be elevated during your stay in the hospital and you required small doses of insulin for blood sugar control. Follow up with your PCP within 1 week for blood sugar check and for the possibility of beginning oral medications for your diabetes. Do not take any motrin, ibuprofen, NSAIDs or any other medications without discussion with your doctor. You are started on new medication protonix 40 mg daily. Continue till further instructed by your release and technical records clerk. Continue other medications as before. Call 911 or come to ED if any worsening or persistent dark or bloody stools, dizziness, belly pain, nausea, vomiting, fevers or new concerns noted. Referrals: Sidney Rodriguez MD [Staff Physician] - 1 Week Antelmo Adler DO [Staff Physician] - 1 Week Disposition: HOME - Home Medications Comprehensive Discharge Medication List: Ambulatory Orders Amlodipine Besylate 10 mg PO DAILY 11/13/17 Nebivolol [Bystolic -] 7.5 mg PO DAILY 11/13/17 Sevelamer Carbonate [Renvela -] 1,600 mg PO TID 11/13/17 hydrALAZINE HCL [Apresoline -] 25 mg PO BID 11/13/17 Pantoprazole Sodium [Protonix -] 40 mg PO DAILY #30 tablet.ec 11/17/17 This patient is new to me today: Yes Date on this admission: 11/17/17 Emergency Visit: Yes ED Registration Date: 11/13/17 Care time: The patient presented to the Emergency Department on the above date and was hospitalized for further evaluation of their emergent condition. Critical Care patient: No - Discharge Referral Referred to [facility] Med P.C.: No
[2017-11-18] MEDS ORDERED: EPOETIN ALFA 2,000 UNIT/1 ML VIAL IVPUSH ONE (06:00)
== END 2017-11-17 15:35 | disposition home or self-care (01) | DRG 377 ==
LOC: JER 09:34 → JERBED 10:55 → J4S 17:17 → JICU 11-14 20:29
PROVIDERS: ADMIT Internal Medicine; ATTEND Hospitalist
PROC: 30233N1 Transfusion of Nonautologous Red Blood Cells into Peripheral Vein, Percutaneous Approach (ICD-10-PCS; principal; 2017-11-13)
PROC: 0DD98ZX Extraction of Duodenum, Via Natural or Artificial Opening Endoscopic, Diagnostic (ICD-10-PCS; 2017-11-14)
PROC: 5A1D70Z Performance of Urinary Filtration, Intermittent, Less than 6 Hours Per Day (ICD-10-PCS; 2017-11-14)
PROC: 0DBM8ZX Excision of Descending Colon, Via Natural or Artificial Opening Endoscopic, Diagnostic (ICD-10-PCS; 2017-11-16)
PROC: 5A1D70Z Performance of Urinary Filtration, Intermittent, Less than 6 Hours Per Day (ICD-10-PCS; 2017-11-16)
DX: K92.2 Gastrointestinal hemorrhage, unspecified (principal); N18.6 End stage renal disease; I12.0 Hypertensive chronic kidney disease with stage 5 chronic kidney disease or end stage renal disease; E87.2 Acidosis; D62 Acute posthemorrhagic anemia; K92.1 Melena; E11.22 Type 2 diabetes mellitus with diabetic chronic kidney disease; E78.5 Hyperlipidemia, unspecified; D72.829 Elevated white blood cell count, unspecified; E11.21 Type 2 diabetes mellitus with diabetic nephropathy; R55 Syncope and collapse; E87.5 Hyperkalemia; D12.6 Benign neoplasm of colon, unspecified; K44.9 Diaphragmatic hernia without obstruction or gangrene; K26.9 Duodenal ulcer, unspecified as acute or chronic, without hemorrhage or perforation; K22.2 Esophageal obstruction; E83.42 Hypomagnesemia; K63.5 Polyp of colon; I95.9 Hypotension, unspecified; K57.30 Diverticulosis of large intestine without perforation or abscess without bleeding; Z99.2 Dependence on renal dialysis
CPT/HCPCS: 36415; 36430; 36511; 70450-TC; 71045-TC-FY; 76700-TC; 80048; 80053; 82272; 82550; 82728; 82962; 83010; 83540; 83550; 83605; 83615; 83735; 84100; 84484; 85025; 85027; 85610; 85730; 86704; 86706; 86708; 86803; 86850; 86900; 86901; 86922; 87040; 87340; 88305-TC; 93005; 93010; 99285-25; P9038; P9058